=== PATIENT | female | born 1935 | race Caucasian/White ===

== ENCOUNTER → 2017-11-19 03:00 | Outpatient (CLI) | payer OTHER, SELFPAY ==
[2017-11-19 09:31] LABS: ALT 26 U/L (12-78); AST 21 U/L (15-37); Albumin 3.5 g/dL (3.4-5.0); Alkaline Phosphatase 84 U/L (46-116); Anion Gap 8.7 mmol/L (3-11); BUN 17 mg/dL (7-18); Bilirubin, Total 0.4 mg/dL (0.2-1.0); CO2 29.3 mmol/L (21.0-32.0); CREATININE 0.72 mg/dL (0.55-1.02); Calcium 9.1 mg/dL (8.5-10.1); Chloride 105 mmol/L (98-107); Glucose 93 mg/dL (70-100); Potassium 3.9 mmol/L (3.5-5.1); Sodium 143 mmol/L (136-145); Total Protein 6.9 g/dL (6.4-8.2)
== END ==
DX: I10 Essential (primary) hypertension (principal)
CPT/HCPCS: 36415; 80053

== ENCOUNTER → 2017-11-26 01:54 | Outpatient (CLI) | payer OTHER, SELFPAY ==
--- NOTE | 2017-11-26 15:53 | DI.REPORT_ITS ---
SYMPTOM/DIAGNOSIS: SCREENING, Z12.31 MAMMOGRAMS: Mammograms were interpreted according to the usual protocol including computer analysis with CAD system, tomosynthesis and C view imaging. Comparison is made with exams from [id number]. The breasts are composed of scattered fibroglandular densities, breast density, Category B. No suspicious masses or suspicious microcalcifications are seen. There has been no significant change. IMPRESSION: Category 1B, negative mammogram. Routine screening is recommended. [facility] ASSESSMENT OF FINDINGS: Negative. Category 1. Patient will receive a letter notifying them of these results. BI-RADS category B. There are scattered areas of fibroglandular density.
== END ==
DX: Z12.31 Encounter for screening mammogram for malignant neoplasm of breast (principal)
CPT/HCPCS: 77063; 77067

== ENCOUNTER 2018-09-17 01:44 | Outpatient (CLI) | payer OTHER, SELFPAY ==
[2018-09-17 08:48] LABS: ALT 30 U/L (12-78); AST 19 U/L (15-37); Albumin 3.6 g/dL (3.4-5.0); Alkaline Phosphatase 88 U/L (46-116); Anion Gap 8.1 mmol/L (3-11); BUN 22 mg/dL (7-18); Bilirubin, Total 0.3 mg/dL (0.2-1.0); CO2 28.9 mmol/L (21.0-32.0); CREATININE 0.69 mg/dL (0.55-1.02); Calcium 9.3 mg/dL (8.5-10.1); Chloride 104 mmol/L (98-107); Glucose 93 mg/dL (70-100); Potassium 4.1 mmol/L (3.5-5.1); Sodium 141 mmol/L (136-145); TSH (W/Ref FT4) 4.13 uIU/mL (0.358-3.74); Total Protein 7.1 g/dL (6.4-8.2)
[2018-09-17 09:05] LABS: FREE T4 0.99 ng/dL (0.76-1.46)
== END 2018-09-17 02:04 ==
DX: F32.9 Major depressive disorder, single episode, unspecified (principal); I10 Essential (primary) hypertension; J44.9 Chronic obstructive pulmonary disease, unspecified; G47.00 Insomnia, unspecified
CPT/HCPCS: 36415; 80053; 84439; 84443

== ENCOUNTER 2018-10-07 15:20 | Outpatient (CLI) | payer OTHER, SELFPAY | END 2018-10-07 15:40 | DX: Z82.0 Family history of epilepsy and other diseases of the nervous system (principal); F32.9 Major depressive disorder, single episode, unspecified; G47.00 Insomnia, unspecified | CPT/HCPCS: 36415; 83519 ==

== ENCOUNTER 2018-12-03 07:42 | Outpatient (CLI) | payer OTHER, SELFPAY ==
--- NOTE | 2018-12-03 11:11 | DI.MAMMO_ITS ---
SYMPTOM/DIAGNOSIS: SCREENING, Z12.39 MAMMOGRAMS: Mammograms were interpreted according to the usual protocol including computer analysis with CAD system, tomosynthesis and C view imaging. Comparison with prior examinations. Breast density B. No suspicious masses or microcalcifications are seen. There is no definite evidence of malignancy. IMPRESSION: Negative mammogram. Routine screening is recommended. Category I. [facility] ASSESSMENT OF FINDINGS: Negative. Category 1. Patient will receive a letter notifying them of these results. BI-RADS category B. There are scattered areas of fibroglandular density.
== END 2018-12-03 08:02 ==
DX: Z12.31 Encounter for screening mammogram for malignant neoplasm of breast (principal)
CPT/HCPCS: 77063; 77067

== ENCOUNTER 2019-01-05 11:53 | Outpatient (CLI) | payer OTHER, SELFPAY ==
[2019-01-05 13:31] LABS: Bilirubin Negative (Negative); Blood Large (Negative); Clarity Cloudy (Clear); Glucose Negative (Negative); Ketones Negative (Negative); Leukocyte Esterase Small (Negative); Nitrite Negative (Negative); Specific Gravity 1.015 (1.005-1.025); Urobilinogen 0.2 EU/dL (Up TO 0.2); pH 5.5 (5-8)
[2019-01-05 13:33] LABS: C & S Indicated? Yes; RBC >50 (0-2)
== END 2019-01-05 12:13 ==
DX: R30.0 Dysuria (principal)
CPT/HCPCS: 87077; 81003; 81015; 87086; 87186

== ENCOUNTER 2019-04-10 07:00 | Outpatient (CLI) | payer OTHER, SELFPAY ==
[2019-04-10 12:32] LABS: HCT 40.6 % (36.0-46.0); HGB 13.2 g/dL (12.0-15.5); Mean Corp. HGB Concentration 32.5 g/dL (32.0-36.0); Mean Corpuscular Hemoglobin 29.3 pg (27.0-33.0); Mean Corpuscular Volume 90.2 fL (80-95); Platelet Count 253 x1000/uL (130-400); RBC Distribution Width 14.6 % (11.7-14.6); White Blood Cell Count 9.26 k/cumm (4.4-10.8)
[2019-04-10 12:54] LABS: Uric Acid 3.9 mg/dL (2.6-6.0)
== END 2019-04-10 07:20 ==
PROVIDERS: Visit Provider Nurse Practitioner
DX: M25.532 Pain in left wrist (principal)
CPT/HCPCS: 36415; 85027; 84550

== ENCOUNTER 2019-12-22 03:16 | Outpatient (CLI) | payer OTHER, SELFPAY ==
[2019-12-22 09:00] LABS: ALT 25 U/L (14-59); AST 17 U/L (15-37); Albumin 3.4 g/dL (3.4-5.0); Alkaline Phosphatase 77 U/L (46-116); Anion Gap 7.6 mmol/L (3-11); BUN 17 mg/dL (7-18); Bilirubin, Total 0.3 mg/dL (0.2-1.0); CO2 29.4 mmol/L (21.0-32.0); Calcium 9.1 mg/dL (8.5-10.1); Chloride 105 mmol/L (98-107); Glucose 93 mg/dL (74-106); Potassium 3.9 mmol/L (3.5-5.1); Sodium 142 mmol/L (136-145); Total Protein 6.7 g/dL (6.4-8.2)
== END 2019-12-22 03:36 ==
DX: I10 Essential (primary) hypertension (principal); F32.9 Major depressive disorder, single episode, unspecified; G47.00 Insomnia, unspecified; J44.9 Chronic obstructive pulmonary disease, unspecified; R79.89 Other specified abnormal findings of blood chemistry; R49.9 Unspecified voice and resonance disorder; K21.9 Gastro-esophageal reflux disease without esophagitis; H91.90 Unspecified hearing loss, unspecified ear
CPT/HCPCS: 36415; 80053; 84443

== ENCOUNTER 2020-04-18 09:25 | Day surgery (SDC) | payer OTHER, SELFPAY ==
[2020-04-18 09:46] VITALS: BP 151/73; PULSE 62; RESP 18; TEMP 36.9; O2SAT 96
[2020-04-18] MEDS: Tropicam./Phenyleph. (1/2.5%) 5 ML BTL OS ×3 (09:57→10:12)
[2020-04-18] MEDS: Tetracaine 0.5% 4 ML BTL OS (10:38)
[2020-04-18] MEDS: Duovisc Viscoelastic System EACH 1 EACH (10:40)
[2020-04-18] MEDS: Balanced Salt Soln.-PLUS 500 ML BAG (10:40)
[2020-04-18] MEDS: Lidocaine 2% Jelly 6 ML SYR (10:41)
[2020-04-18] MEDS: Lidocaine 1% Pres-Free 5 ML VIAL (10:41)
[2020-04-18] MEDS: Povidone-Iodine Ophth 30 ML BTL (10:42)
--- NOTE | 2020-04-18 11:09 | W.PM.DSUDISC ---
Discharge Plan Disposition Patient Disposition: HOME Condition: Good Discharge Details Attending Provider: Joshua Santizo Primary Care Provider: Renee Iqbal Home Meds and New Rx's Prescriptions: No Action clobetasol [Temovate] 0.05 % ointment 1 applic Topical 3x/wk Qty: 60 RF: 4 ktpurcnw-dgezw-dhg 149-hyal ac 750 mg-100 mg- 125 mg-1.65 mg tablet 1 tab PO .tab RF: 0 Xdnj-Ajmd-Ekshx (ci-NI-lpglrz) 400-2,000 mcg tablet 1 tab PO DAILY RF: 0 cholecalciferol (vitamin D3) 125 mcg (5,000 unit) capsule 125 mcg PO .COMPLEX RF: 0 budesonide-formoterol [Symbicort] 80-4.5 mcg/actuation HFA aerosol inhaler 2 puff Inhalation BID Qty: 3 RF: 4 lisinopril 2.5 mg tablet 2.5 mg PO DAILY Qty: 30 RF: 1 multivitamin 1 EACH tablet 1 tab PO DAILY RF: 0 cetirizine [Zyrtec] 10 MG tablet 1 tab PO DAILY PRNRF: 0 ibuprofen 200 MG tablet 1 tab PO PRN RF: 0 aspirin [Aspirin Low-Strength] 81 MG tablet,chewable 1 tab PO DAILY RF: 0 Tumeric 1 cap PO DAILY RF: 0 hydrochlorothiazide 12.5 mg tablet 12.5 mg PO DAILY Qty: 90 RF: 4 sertraline [Zoloft] 50 mg tablet 50 mg PO DAILY Qty: 90 RF: 4 famotidine 20 mg tablet 20 mg PO BID Qty: 60 RF: 6 Discharge Instructions Stand Alone Forms: Post-op Topical Cataract, Gloria Ganey (DSU) Discharge Orders Discharge Orders: Discharge Order (Routine); Ordered 04/18/20 Ordered By: Jsohua Santizo DS: Diagnosis Discharge Diagnosis (1) Nuclear sclerotic cataract of left eye: Status: Resolved (2) Cortical cataract of left eye: Status: Resolved
--- NOTE | 2020-04-18 11:10 | W.PM.OP ---
Date of service: 04/18/20 Time of Service: 11:10 Operative Note Operative Note DATE OF PROCEDURE: 04/18/20 PRE-OP DIAGNOSIS: Nuclear/cortical cataract, left eye POST-OP DIAGNOSIS: same PROCEDURE: Cataract extraction using phacoemulsification with intraocular lens implant, left eye SURGEON: Joshua Santizo ANESTHESIA: MAC and local (sub-tenon's anesthetic infiltration) PATHOLOGY: none sent COMPLICATIONS: None Patient was transported to: same day Patient's condition: stable Implants: Stefano and Stefano Vision / [employer] Tecnis ZCB00 Indications: Progressive decreased vision due to cataract, left eye Procedure Description: CATARACT SURGERY OPERATIVE REPORT PREOPERATIVE DIAGNOSIS: Nuclear/cortical cataract, left eye POSTOPERATIVE DIAGNOSIS: Same OPERATION: Cataract extraction using phacoemulsification with posterior chamber intraocular lens implant, left eye. IOL: IOL Security Systems Engineer/Model: [employer] Vision / PAT Tecnis ZCB00 IOL Power: + 25.0 diopters IOL Serial Number: [id number] Optic Diameter: 6.0mm Haptic/Overall Diameter: 13.0mm PHACO INFO: Jaime femeninasurion Vision System with OZil and Active Fluidics Cumulative Dispersed Energy (CDE): 9.21 seconds SURGEON: Joshua Santizo MD, JENN ANESTHESIA: Monitored Anesthesia Care (MAC), with local sub-tenon's anesthetic infiltration COMPLICATIONS: None SPECIMENS: None INDICATIONS FOR PROCEDURE: The patient is an 84-year-old lady with history of diminished visual acuity in her left eye secondary to the development of significant nuclear cataract. The option of cataract surgery was offered to the patient and she wished to proceed. PROCEDURE: The correct surgical eye was identified and marked as the left eye and the pupil was dilated in the preoperative area using mydriatics and cycloplegics. The dilated pupil size was 6.0 mm. The patient elected to proceed without oral sedation the patient was brought to the operating room where cardiopulmonary monitoring was instituted and surgical time-out was performed, confirming the correct operative eye and IOL power. Topical anesthesia was administered and ophthalmic povidone-iodine 5% was instilled into the conjunctival fornices. Lidocaine gel was applied to the cornea and the gabriella-ocular area was prepped with Betadine 10% solution and draped in the usual sterile fashion for intraocular surgery, including an aperture drape. A Tegaderm transparent film dressing was cut in half and used to cover the lashes and lid margins. Care was taken to sequester the lashes and lid margins under the Tegaderm dressing. A lid speculum was placed between the lids of the operative eye and the Chikis-Jamaal operating microscope was maneuvered into position. Jasbir scissors were then used to make a conjunctival buttonhole approximately 6mm posterior to the limbus in the inferonasal quadrant. Blunt dissection was carried out to expose bare sclera, and a blunt-tipped sub-tenon?s anesthesia cannula was introduced and passed posteriorly along the globe where non-preserved plain lidocaine was injected into posterior sub-Tenon?s space. A sideport knife was used to make a paracentesis port superior/superiortemporally. Intraocular phenylephrine/lidocaine was injected into the anterior chamber. The anterior chamber was then filled with viscoelastic. A 2.4mm keratome knife was used to create a half-thickness groove at the limbus and then to construct a three-plane near-clear corneal tunnel extending 2.0mm into clear cornea in the temporal position. . A flap was raised on the anterior capsule and capsulorhexis forceps were used to complete a continuous curvilinear capsulorhexis of 5.5 mm. Balanced salt solution was then used to perform cortical cleaving hydrodissection and nuclear hydrodelineation until the lens could be freely rotated within the capsular bag. The lens nucleus was then disassembled and removed within the capsular bag and iris plane using phacoemulsification. Residual cortical material was removed using the 45-degree angled silicone I/A tip with 0.3mm port. The posterior capsule was carefully polished to remove as much residual lens epithelial cells as safely possible. The capsular bag was then inflated and the anterior chamber deepened with viscoelastic. The lens implant described above was inserted into the capsular bag using the PAT [place] Injector. A Kuglen hook was used to dial the IOL into position. Residual viscoelastic was then removed first from posterior to the IOL, then from the anterior chamber using the I/A handpiece. The lens implant was noted to center nicely within the capsular bag. The incisions were stromally hydrated, and the anterior chamber was reformed using BSS. Then 0.5cc of moxifloxacin 1.0mg/ml were injected into the capsular bag and anterior chamber. The incisions were checked with a Weck spear and found to be secure. Several drops of ophthalmic povidone-iodine 5% were then applied to the eye followed by two drops of Imprimis combination prednisolone/moxifloxacin/nepafenac solution. The drapes were removed and a clear plastic protective eye shield was placed over the eye. The patient was then returned to [facility] in stable condition.
== END 2020-04-18 11:37 | disposition home or self-care (01) ==
PROVIDERS: Visit Provider Ophthalmology
PROC: (CPT 66984; principal; 2020-04-18 11:30)
DX: H25.12 Age-related nuclear cataract, left eye (principal); H25.012 Cortical age-related cataract, left eye; I10 Essential (primary) hypertension; J44.9 Chronic obstructive pulmonary disease, unspecified; K21.9 Gastro-esophageal reflux disease without esophagitis
CPT/HCPCS: 66984; V2632

== ENCOUNTER 2020-05-02 07:28 | Day surgery (SDC) | payer OTHER, SELFPAY ==
[2020-05-02 07:30] VITALS: BP 128/72; PULSE 68; RESP 18; TEMP 36.1; O2SAT 98
[2020-05-02] MEDS: Tropicam./Phenyleph. (1/2.5%) 5 ML BTL OD ×3 (07:48→07:56)
[2020-05-02] MEDS: Tetracaine 0.5% 4 ML BTL OD (09:13)
[2020-05-02] MEDS: Lidocaine 1% Pres-Free 5 ML VIAL (09:20)
[2020-05-02] MEDS: Balanced Salt Soln.-PLUS 500 ML BAG (09:33)
[2020-05-02] MEDS: Duovisc Viscoelastic System EACH 1 EACH (09:33)
[2020-05-02] MEDS: Lidocaine 2% Jelly 6 ML SYR (09:34)
[2020-05-02] MEDS: Povidone-Iodine Ophth 30 ML BTL (09:35)
--- NOTE | 2020-05-02 09:39 | W.PM.DSUDISC ---
Discharge Plan Disposition Patient Disposition: HOME Condition: Good Discharge Details Attending Provider: Joshua Santizo Primary Care Provider: Renee Iqbal Home Meds and New Rx's Prescriptions: No Action clobetasol [Temovate] 0.05 % ointment 1 applic Topical 3x/wk Qty: 60 RF: 4 joziviqs-flkww-akj 149-hyal ac 750 mg-100 mg- 125 mg-1.65 mg tablet 1 tab PO .tab RF: 0 Jdad-Mubi-Iqeel (zp-AL-qdspcr) 400-2,000 mcg tablet 1 tab PO DAILY RF: 0 cholecalciferol (vitamin D3) 125 mcg (5,000 unit) capsule 125 mcg PO .COMPLEX RF: 0 budesonide-formoterol [Symbicort] 80-4.5 mcg/actuation HFA aerosol inhaler 2 puff Inhalation BID Qty: 3 RF: 4 lisinopril 2.5 mg tablet 2.5 mg PO DAILY Qty: 90 RF: 3 cetirizine [Zyrtec] 10 MG tablet 1 tab PO DAILY PRNRF: 0 ibuprofen 200 MG tablet 1 tab PO PRN RF: 0 aspirin [Aspirin Low-Strength] 81 MG tablet,chewable 1 tab PO DAILY RF: 0 Tumeric 1 cap PO DAILY RF: 0 hydrochlorothiazide 12.5 mg tablet 12.5 mg PO DAILY Qty: 90 RF: 4 sertraline [Zoloft] 50 mg tablet 50 mg PO DAILY Qty: 90 RF: 4 famotidine 20 mg tablet 20 mg PO BID Qty: 60 RF: 6 ascorbic acid (vitamin C) [Vitamin C] 500 mg Tablet 500 mg PO DAILY RF: 0 Discharge Instructions Stand Alone Forms: Post-op Topical Cataract, Gloria Yanes ([facility]U) Discharge Orders Discharge Orders: Discharge Order (Routine); Ordered 05/02/20 Ordered By: Joshua Santizo DS: Diagnosis Discharge Diagnosis (1) Nuclear sclerotic cataract of right eye: Status: Resolved (2) Cortical cataract of right eye: Status: Resolved
--- NOTE | 2020-05-02 09:42 | ROE_ITS ---
Date of service: 05/02/20 Time of Service: 09:42 Operative Note Operative Note DATE OF PROCEDURE: 05/02/20 PRE-OP DIAGNOSIS: Nuclear/cortical cataract, right eye POST-OP DIAGNOSIS: same PROCEDURE: Cataract extraction using phacoemulsification with intraocular lens implant, right eye SURGEON: Joshua Santizo ANESTHESIA: MAC and local (sub-tenon's anesthetic infiltration) ESTIMATED BLOOD LOSS: 0 PATHOLOGY: none sent COMPLICATIONS: None Patient was transported to: same day Patient's condition: stable Implants: Stefano and Stefano Vision / [employer] Tecnis ZCB00 intraocular lens Indications: Progressive decreased vision due to cataract, right eye Procedure Description: CATARACT SURGERY OPERATIVE REPORT PREOPERATIVE DIAGNOSIS: Nuclear/cortical cataract, right eye POSTOPERATIVE DIAGNOSIS: Same OPERATION: Cataract extraction using phacoemulsification with posterior chamber intraocular lens implant, right eye. IOL: IOL Dietitian Research/Model: J&J Vision / PAT Tecnis ZCB00 IOL Power: + +25.0 diopters IOL Serial Number: [id number] Optic Diameter: 6.0mm Haptic/Overall Diameter: 13.0mm PHACO INFO: Jaime [employer] Vision System with OZil and Active Fluidics Cumulative Dispersed Energy (CDE): 2.25 seconds SURGEON: Joshua Santizo MD, JENN ANESTHESIA: Monitored Anesthesia Care (MAC), with local sub-tenon's anesthetic infiltration COMPLICATIONS: None SPECIMENS: None INDICATIONS FOR PROCEDURE: The patient is an 84-year-old lady with history of diminished visual acuity in both eyes secondary to the development of bilateral nuclear cataract. She is significantly symptomatic that she desires cataract surgery and attempt to im prove and maximize her vision. She has already undergone cataract surgery in the left eye and is doing well postoperatively. She now presents for cataract surgery in the right eye. PROCEDURE: The correct surgical eye was identified and marked as the right eye and the pupil was dilated in the preoperative area using mydriatics and cycloplegics. The dilated pupil size was 6.5 mm. No oral sedation was given at patient's request. The patient was brought to the operating room where cardiopulmonary monitoring was instituted and surgical time-out was performed, confirming the correct operative eye and IOL power. Topical anesthesia was administered and ophthalmic povidone-iodine 5% was instilled into the conjunctival fornices. Lidocaine gel was applied to the cornea and the gabriella-ocular area was prepped with Betadine 10% solution and draped in the usual sterile fashion for intraocular surgery, including an aperture drape. A Tegaderm transparent film dressing was cut in half and used to cover the lashes and lid margins. Care was taken to sequester the lashes and lid margins under the Tegaderm dressing. A lid speculum was placed between the lids of the operative eye and the Chikis-Jamaal operating microscope was maneuvered into position. Jasbir scissors were then used to make a conjunctival buttonhole approximately 6mm posterior to the limbus in the inferonasal quadrant. Blunt dissection was carried out to expose bare sclera, and a blunt-tipped sub-tenon?s anesthesia cannula was introduced and passed posteriorly along the globe where non- preserved plain lidocaine was injected into posterior sub-Tenon?s space. A sideport knife was used to make a paracentesis port inferiortemporally. Intraocular phenylephrine/lidocaine was injected into the anterior chamber. The anterior chamber was then filled with viscoelastic. A 2.4mm keratome knife was used to create a half-thickness groove at the limbus and then to construct a three-plane near-clear corneal tunnel extending 2.0mm into clear cornea in the superiortemporal position. . A flap was raised on the anterior capsule and capsulorhexis forceps were used to complete a continuous curvilinear ca psulorhexis of 5.0 mm. Balanced salt solution was then used to perform cortical cleaving hydrodissection and nuclear hydrodelineation until the lens could be freely rotated within the capsular bag. The lens nucleus was then disassembled and removed within the capsular bag and iris plane using phacoemulsification. Residual cortical material was removed using the I/A handpiece. The posterior capsule was carefully polished to remove as much residual lens epithelial cells as safely possible. The capsular bag was then inflated and the anterior chamber deepened with viscoelastic. The lens implant described above was inserted into the capsular bag using the PAT [place] Injector. A Kuglen hook was used to dial the IOL into position. Residual viscoelastic was then removed first from posterior to the IOL, then from the anterior chamber using the I/A handpiece. The lens implant was noted to center nicely within the capsular bag. The incisions were stromally hydrated, and the anterior chamber was reformed using BSS. Then 0.5cc of moxifloxacin 1.0mg/ml were injected into the capsular bag and anterior chamber. The incisions were checked with a Weck spear and found to be secure. Several drops of ophthalmic povidone-iodine 5% were then applied to the eye followed by two drops of Imprimis combination prednisolone/moxifloxacin/nepafenac solution. The drapes were removed and a clear plastic protective eye shield was placed over the eye. The patient was then returned to Same Day Surgery in stable condition.
== END 2020-05-02 10:07 | disposition home or self-care (01) ==
PROVIDERS: Visit Provider Ophthalmology
PROC: (CPT 66984; principal; 2020-05-02 09:30)
DX: H25.11 Age-related nuclear cataract, right eye (principal); H25.011 Cortical age-related cataract, right eye; Z98.42 Cataract extraction status, left eye; Z96.1 Presence of intraocular lens; J44.9 Chronic obstructive pulmonary disease, unspecified; K21.9 Gastro-esophageal reflux disease without esophagitis
CPT/HCPCS: 66984; V2632

== ENCOUNTER 2020-12-23 01:54 | Outpatient (CLI) | payer OTHER, SELFPAY ==
[2020-12-23 14:51] LABS: ALT 29 U/L (14-59); AST 21 U/L (15-37); Albumin 3.6 g/dL (3.4-5.0); Alkaline Phosphatase 68 U/L (46-116); BUN 16 mg/dL (7-18); Bilirubin, Total 0.4 mg/dL (0.2-1.0); CREATININE 0.8 mg/dL (0.55-1.02); Calcium 8.8 mg/dL (8.5-10.1); Chloride 108 mmol/L (98-107); Glucose 91 mg/dL (74-106); Sodium 142 mmol/L (136-145); TSH (W/Ref FT4) 1.34 uIU/mL (0.36-3.74); Total Protein 6.8 g/dL (6.4-8.2)
== END 2020-12-23 01:55 | disposition home or self-care (01) ==
LOC: LBO 01:54
DX: R79.89 Other specified abnormal findings of blood chemistry (principal); Z00.00 Encounter for general adult medical examination without abnormal findings; I10 Essential (primary) hypertension
CPT/HCPCS: 36415; 80053; 84443

== ENCOUNTER 2022-02-13 21:32 | Emergency (ER) | payer MEDICARE, SELFPAY ==
[2022-02-13 20:44] VITALS: BP 140/100; PULSE 79; RESP 23; TEMP 39.2; O2SAT 93
--- NOTE | 2022-02-13 20:45 | RT.EKG_ITS ---
APPROVED REPORT Exam: Resting ECG Reason for Exam: sob Patient Location: E HR:74 bpm ECG Measurements Heart Rate 74 AXIS KS 145 P 56 QRSd 113 QRS -21 QT 381 T 84 QTc 422 Conclusion Sinus rhythm...normal P axis, V-rate 60- 99 Atrial premature complex...SV complex w/ short R-R interval Probable left ventricular hypertrophy...(RaVL+SV3)xQRSd >300
[2022-02-13] MEDS: Ondansetron 4 MG/2 ML VIAL IVP (21:00)
[2022-02-13] MEDS: Normal Saline 1,000 ML 1000 ML IV (21:00)
[2022-02-13 21:14] LABS: Abs Immature Grans 0.04 10^3/uL (0.0-0.06); Absolute Basophil Count 0.04 10^3/uL (0.0-0.2); Absolute Lymphocyte Count 0.72 10^3/uL (1.2-3.4); Absolute Monocyte Count 1.33 10^3/uL (0.1-0.8); Basophils % 0.3; Eosinophils % 0.2; HCT 34.1 % (36.0-46.0); HGB 11.4 g/dL (11.2-15.7); Immature Grans % 0.3; Lymphocytes % 5.9; MCH 29.7 pg (27.0-33.0); MCHC 33.4 % (32.0-36.0); MCV 89 fL (80-95); MPV 11.4 fL (8.0-11.0); Monocytes % 10.9; Neutrophils % 82.4; Platelet Count 216 10^3/uL (130-400); RBC 3.84 10^6/uL (3.93-5.22); RDW 13.7 % (11.7-14.6); RDW-SD 44.5 fL; WBC 12.19 10^3/uL (4.4-10.8)
[2022-02-13 21:15] LABS: Absolute Eosinophil Count 0.02 10^3/uL (0.0-0.7); Absolute Neutrophil Count 10.04 10^3/uL (1.2-6.7)
--- NOTE | 2022-02-13 21:15 | DI.RAD_ITS ---
Exam(s) XR PORTABLE CHEST AP EXAM: XR PORTABLE CHEST AP CLINICAL HISTORY: cough TECHNIQUE: 2D digital imaging was performed of the chest. Images were obtained. PA and lateral v iews were obtained. COMPARISON: No exams were available for comparison FINDINGS: MEDIASTINUM: Normal. HEART: Normal. PULMONARY VASCULATURE: Normal. LUNGS: There are bilateral interstitial infiltrates present, right greater than left. No focal conso lidation is seen. PLEURAL SPACE: No pleural effusion or pneumothorax. BONE:Within normal limits for the patient's age. There is a left convex curvature of the lumbar spin e. OTHER FINDINGS:Normal. IMPRESSION: Bilateral pulmonary infiltrates. Pneumonia is suspected. Please correlate clinically. The possibil ity of chronic fibrotic changes cannot be entirely excluded. DATA REPOSITORY: RADIATION DOSE DELIVERED:
--- NOTE | 2022-02-13 21:18 | ED.GENADUL_ITS ---
Discharge Plan Disposition Patient Disposition: HOME Condition: Stable Discharge Details Clinical Impression: Fever, Cough Primary Care Provider: Renee Iqbal ED Provider: Gorge Marquez Home Meds and New Rx's Prescriptions: New levofloxacin 750 mg tablet 750 mg PO DAILY Qty: 6 0RF Continued clobetasol [Temovate] 0.05 % ointment 1 applic Topical 3x/wk Qty: 60 Label Comments: 12/08/2019 uses 2X/Week. managed by [facility] Rx Instructions: 60 GM peydhukl-zbqix-qfj 149-hyal ac 750 mg-100 mg- 125 mg-1.65 mg tablet 1 tab PO .tab Ipkt-Agll-Bvevy (nt-PQ-nznwvq) 400-2,000 mcg tablet 1 tab PO DAILY cholecalciferol (vitamin D3) 125 mcg (5,000 unit) capsule 125 mcg PO .COMPLEX Rx Instructions: 125 mcg PO 3 x WEEK; famotidine 20 mg tablet 20 mg PO BID Qty: 60 12RF hydrochlorothiazide 12.5 mg tablet 12.5 mg PO DAILY Qty: 90 4RF lisinopril 5 mg tablet 5 mg PO DAILY Qty: 90 3RF sertraline [Zoloft] 50 mg tablet 50 mg PO DAILY Qty: 90 4RF azelastine 137 mcg (0.1 %) aerosol,spray 137 mcg intranasal ONCE Qty: 30 0RF Rx Instructions: administer into each nostril magnesium oxide 500 mg capsule 500 mg PO DAILY cetirizine [Zyrtec] 10 MG tablet 1 tab PO DAILY PRN ibuprofen 200 MG tablet 1 tab PO PRN aspirin [Aspirin Low-Strength] 81 MG tablet,chewable 1 tab PO DAILY Tumeric 1 cap PO DAILY budesonide-formoterol [Symbicort] 80-4.5 mcg/actuation HFA aerosol inhaler 2 puff Inhalation BID Qty: 3 4RF ascorbic acid (vitamin C) [Vitamin C] 500 mg Tablet 500 mg PO DAILY Discharge Instructions Instructions: Fever in Adults (ED) Additional Instructions: take the levofloxacin once daily try to drink fluids to stay hydrated follow up with your primary care provider within 1 week if you feel more ill, have worsening trouble breathing or severe pain return to the emergency department Medical Decision Making 86 yo female who states she is fully vaccinated with 2 boosters for covid, history of copd, not on oxygen, htn, who comes in with ems for 6 days with cough, n/v and states I have covid. She states she started to have a cough 6 days ago and tested positive for covid at home. She has continued to have a cough, and then developed n/v today and so called ems. She has also noted general weakness. She any to me any chest pain or dyspnea. She has had a fever. She denies headaches, neck stiffness. She arrives stable, not requiring oxygen speaking in full sentences without evidence of respiratory distress. She is caox4. She has no wheezing though is diminished at the bases bilaterally. She has no abdominal tenderness, no meningismus. Suspect this is due to covid, will obtain cbc, cmp, and portable chest xray along with fluvid and reassess after iv fluids, zofran and tylenol. pt stable, feels significantly better after fluids and zofran. Tolerating po. She continues to have stable vitals 95% on room air. She surprisingly is negative for covid on testing here. Xray negative. Discussed with pt and given her age and mild leukocytosis to 12 recommended admission for observation and antibiotics. She states she feels better and has no desire to be hospitalized at this time and has capacity to make her own decisions and understands risks of worsening infection including and disability and is willing to accept these risks. She is able to take po so will cover for CAP given her cough with levofloxacin. She understands to f/u with her pcp brendon and return precautions given Differential Diagnosis Differential Diagnosis: covid, pneumonia, flu Medical Records Medical records reviewed: Yes I reviewed the patient's medical records. Imaging Data Radiologic Study: Attestation: I personally reviewed and interpreted this imaging study as follows: Imaging: X-Ray Radiologist's impression: no acute findings Lab Data Lab results reviewed: Yes I reviewed the patient's lab results. ECG Data Attestation: I personally reviewed and interpreted this ECG (s) as follows: Prior ECG tracings: not available for review Interpretation: sinus rhythm, rate of 74, no acute st t wave ischemic findings HPI General Mode of arrival: EMS . Date/Time Provider Initiated Documentation: 02/13/22 22:14 . Limitations to Documentation: no limitations . Information obtained by: patient . History of Present Illness 86 year old F presents to the emergency department with the chief complaint of I have covid, described as moderate, Patient started experiencing this day(s) (6) and it has been constant. No relieving factors improve symptom(s), No exacerbating factors reported . Patient notes cough and nausea/vomiting. Patient did receive the following treatments prior to arrival, none Related Data Home Medications Medication Instructions Recorded Confirmed aspirin 81 mg chewable tablet 1 tab PO DAILY 07/22/12 12/19/21 (Aspirin Low-Strength) cetirizine 10 mg tablet (Zyrtec) 1 tab PO DAILY PRN 07/22/12 12/19/21 ibuprofen 200 mg tablet 1 tab PO PRN 07/22/12 12/19/21 Tumeric 1 cap PO DAILY 11/12/17 12/19/21 cholecalciferol (vitamin D3) 125 125 mcg PO .COMPLEX 12/08/19 12/19/21 mcg (5,000 unit) capsule clobetasol 0.05 % topical ointment 1 applic topical 3x/wk #60 grams 12/08/19 12/19/21 (Temovate) dmrxbcytktc-zokglqlfx-[id number]-hyal 1 tab PO .tab 12/08/19 12/19/21 750 mg-100 mg-125 mg-1.65 mg tablet multivitamin-folic acid 400 1 tab PO DAILY 12/08/19 12/19/21 mcg-biotin 2,000 mcg tablet (Dalj-Gbuj-Lsihu (seioferm-reull-hznqxq)) ascorbic acid (vitamin C) 500 mg 500 mg PO DAILY 05/02/20 12/19/21 tablet (Vitamin C) azelastine 137 mcg (0.1 %) nasal 137 mcg (0.137 mL) intranasal ONCE 12/19/21 12/19/21 spray aerosol #30 mL famotidine 20 mg tablet 20 mg PO BID #60 tabs 12/19/21 12/19/21 hydrochlorothiazide 12.5 mg tablet 12.5 mg PO DAILY #90 tabs 12/19/21 12/19/21 lisinopril 5 mg tablet 5 mg PO DAILY #90 tabs 12/19/21 12/19/21 sertraline 50 mg tablet (Zoloft) 50 mg PO DAILY #90 tabs 12/19/21 12/19/21 magnesium oxide 500 mg capsule 500 mg PO DAILY 01/02/22 budesonide-formoterol HFA 80 2 puff inhalation BID ##3 01/04/22 mcg-4.5 mcg/actuation aerosol inhaler (Symbicort) levofloxacin 750 mg tablet 750 mg PO DAILY #6 tabs 02/13/22 Previous Rx's Medication Instructions Recorded azelastine 137 mcg (0.1 %) nasal 137 mcg (0.137 mL) intranasal ONCE 12/19/21 spray aerosol #30 mL famotidine 20 mg tablet 20 mg PO BID #60 tabs 12/19/21 hydrochlorothiazide 12.5 mg tablet 12.5 mg PO DAILY #90 tabs 12/19/21 lisinopril 5 mg tablet 5 mg PO DAILY #90 tabs 12/19/21 sertraline 50 mg tablet (Zoloft) 50 mg PO DAILY #90 tabs 12/19/21 budesonide-formoterol HFA 80 2 puff inhalation BID ##3 01/04/22 mcg-4.5 mcg/actuation aerosol inhaler (Symbicort) levofloxacin 750 mg tablet 750 mg PO DAILY #6 tabs 02/13/22 Allergies Allergy/AdvReac Type Severity Reaction Status Date / Time erythromycin base Allergy Pt states Verified 01/02/22 14:32 when she was a kid Macrolide Antibiotics Allergy unknown Verified 01/02/22 14:32 General Stated Complaint: Fever BHAVANI: 3 Review of Systems All systems reviewed & are unremarkable except as noted in HPI and below Eyes Eyes: Denies loss of vision ENT Ears, Nose, Mouth, and Throat: Denies change in voice Cardiovascular Cardiovascular: Denies chest pain Gastrointestinal Gastrointestinal: Denies abdominal pain Genitourinary Genitourinary: Denies dysuria Musculoskeletal Musculoskeletal: Denies joint swelling Neurologic Neurologic: Denies loss of vision PFSH All Active Problems (Updated 02/13/22 @ 22:59 by Gorge Marquez MD) Fever (Acute) Cough (Acute) Pain, foot (Acute) Corns and callosities (Acute) Vulvar irritation (Acute) LICHEN SCLEROSIS OF [place] PER [facility] 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 Marcia Baumann (Acute 03/22/16) Low back pain (Chronic) chronic LBP and stiffness Increased frequency of urination (Chronic) Gastroesophageal reflux disease (Chronic) Essential hypertension (Chronic 01/01/13) Dermatitis (Acute 12/31/13) Depressive disorder (Chronic) COPD (chronic obstructive pulmonary disease) (Acute) quit smoking 2002 Atrophic vaginitis (Acute 05/13/15) Allergic rhinitis (Chronic) Actinic keratosis (Chronic) nose; Dr. Wolfe Elevated TSH (Acute) Migraine aura without headache (Acute) Medical History (Updated 02/13/22 @ 22:59 by Gorge Marquez MD) COPD (chronic obstructive pulmonary disease) Ganglion cyst GERD (gastroesophageal reflux disease) Hearing loss Dr. Kennedy Impacted cerumen, right ear (03/22/16) Ingrowing eyelash of lower lid (R) Mass of joint of right wrist Surgical History Cholecystectomy (~2011) Colonoscopy - MAC (03/27/16) Open Carpal Tunnel release (~2007) X 2 Family History Son Acromegaly Depression Bowel cancer Daughter Depression Skin cancer Social History (Updated 12/20/21 @ 15:25 by Miriam Lynch) Smoking/Tobacco Use Status: Former Tobacco Use Quit Date: 04/08/89 Tobacco: How many years used: 48 Second Hand Exposure: No Smoking risk assessment performed?: Yes Alcohol Intake: current Alcohol Intake frequency: holidays/special occasions only Alcohol type: wine Drug use: Rarely Substance use type: does not use Counseling given: No Counseling provided: none Adopted: Yes Caregiver/Support person: Yes Household members: spouse Housing: apartment Communication Needs: Hard of Hearing and Corrective Lenses Do you need help understanding health information?: Never Pets and animals: No Sexually active: No Do you think of yourself as: straight/heterosexual Current gender identity: female What is your relationship status?: How often do you talk on the phone with friends or family?: three or more times per week How often do you get together with friends or relatives?: once per week How often do you attend christian or mandaeism services?: 4 or more times per year Do you belong to any clubs or organized social groups?: yes Panel score (0-1 are the most socially isolated patients): 4 What type of physical activity do you participate in: walking and other Details: Excercise class Duration: 15-30 minutes/day Frequency: 1-2 times per week Michaela/Mandaen: Religion Special michaela needs: No Seatbelt use: always Helmet use: No 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 Do you feel safe at home: Yes Do you feel safe in your relationship?: Yes Exam Const General: no acute distress Orientation: alert HENMT Head: normal to inspection Ears: external ears normal General nose exam: external nose normal Mouth: moist mucous membranes Eyes General: appearance normal, both eyes and all related structures Neck Neck: normal visual inspection Resp Effort & Inspection: normal respiratory effort and able to speak in complete sentences Cardio Rate: regular rate GI Palpation: soft and nontender Skin General skin exam: no rashes or lesions noted Neuro General: patient alert and patient oriented x3 Extrem General: normal to inspection Psych Mental Status: mental status grossly normal Course Vital Signs Vital signs: Vital Signs Temperature 39.2 C H 02/13/22 20:44 Pulse 79 02/13/22 20:44 Respiratory Rate 23 02/13/22 20:44 Blood Pressure 140/100 H 02/13/22 20:44 Pulse Oximetry 93 02/13/22 20:44 Temperature 39.2 C H 02/13/22 20:44 Temperature Source Oral 02/13/22 20:44 Pulse 79 02/13/22 20:44 Respiratory Rate 23 02/13/22 20:44 Respiratory Effort 02/13/22 20:52 Blood Pressure 140/100 H 02/13/22 20:44 Blood Pressure Position Supine 02/13/22 20:44 Pulse Oximetry 93 02/13/22 20:44 Oxygen Delivery Method Room Air 02/13/22 20:44 Oxygen Flow Rate 0 02/13/22 20:44 Pain Level 4 02/13/22 20:44 Lab/Test Results Lab/Test Results: Laboratory Tests Range/Units 02/13/22 21:00 WBC (4.4-10.8) 10^3/uL 12.19 H RBC (3.93-5.22) 10^6/uL 3.84 L Hgb (11.2-15.7) g/dL 11.4 Hct (36.0-46.0) % 34.1 L MCV (80-95) fL 89 MCH (27.0-33.0) pg 29.7 MCHC (32.0-36.0) % 33.4 RDW (11.7-14.6) % 13.7 Plt Count (130-400) 10^3/uL 216 MPV (8.0-11.0) fL 11.4 H Immature Gran % 0.3 Neutrophils % 82.4 Lymphocytes % 5.9 Monocytes % 10.9 Eosinophils % 0.2 Basophils % 0.3 Nucleated RBC % (0.0-0.3) % 0.0 Absolute Neutrophils (1.2-6.7) 10^3/uL 10.04 H Absolute Lymphocytes (1.2-3.4) 10^3/uL 0.72 L Absolute Monocytes (0.1-0.8) 10^3/uL 1.33 H Absolute Eosinophils (0.0-0.7) 10^3/uL 0.02 Absolute Basophils (0.0-0.2) 10^3/uL 0.04
[2022-02-13] MEDS: Acetaminophen 500 MG TAB 1000 MG PO (21:23)
[2022-02-13 21:31] LABS: ALT 34 U/L (14-59); AST 33 U/L (15-37); Albumin 3.1 g/dL (3.4-5.0); Alkaline Phosphatase 78 U/L (46-116); Anion Gap 9.5 mmol/L (3-11); BUN 20 mg/dL (7-18); Bilirubin, Total 0.7 mg/dL (0.2-1.0); CO2 28.5 mmol/L (21.0-32.0); Calcium 9.1 mg/dL (8.5-10.1); Chloride 98 mmol/L (98-107); Estimated GFR 55.55 (mL/min/1.73m2); Glucose 146 mg/dL (74-106); Magnesium 1.9 mg/dL (1.8-2.4); Potassium 3.2 mmol/L (3.5-5.1); Sodium 136 mmol/L (136-145); Total Protein 7.5 g/dL (6.4-8.2)
[2022-02-13 21:48] LABS: COVID-19 PCR Negative (Negative); Influenza A PCR Negative (Negative); Influenza B PCR Negative (Negative); RSV PCR Negative (Negative)
[2022-02-13 21:52] LABS: Source Nasopharynx
--- NOTE | 2022-02-13 22:09 | DI.VRAD_ITS ---
PROCEDURE INFORMATION: Exam: XR Chest Exam date and time: 02/13/2022 9:30 PM Age: 86 years old Clinical indication: Cough TECHNIQUE: Imaging protocol: Radiologic exam of the chest. Views: 1 view. COMPARISON: No relevant prior studies available. FINDINGS: Lungs: Unremarkable. No consolidation. Pleural spaces: Unremarkable. No pleural effusion. No pneumothorax. Heart/Mediastinum: Unremarkable. No cardiomegaly. Bones/joints: Degenerative and scoliotic change of the spine. IMPRESSION: No acute findings. Dictated and Authenticated by: Gorge Muro MD. Ordering:KRYSTIAN Pennington MD
[2022-02-13] MEDS: levoFLOXacin 500 MG, levoFLOXacin 250 MG 750 MG PO (22:59)
[2022-02-13] MEDS: Dexamethasone 10 MG/ML VIAL IVP (22:59)
[2022-02-13 23:47] LABS: Bilirubin Negative (Negative); Blood Trace-intact (Negative); Clarity Clear (Clear); Glucose Negative (Negative); Ketones Negative (Negative); Leukocyte Esterase Small (Negative); Nitrite Positive (Negative); Specific Gravity 1.025 (1.005-1.025); Urobilinogen 0.2 EU/dL (Up TO 0.2)
[2022-02-13 23:54] LABS: Bacteria Moderate HPF (Negative); C & S Indicated? Yes; Crystals Few Amorphous HPF (Negative); Epithelial Cells Few HPF (Negative); Mucus Negative (Negative); RBC 0-2 HPF (0-2)
[2022-02-13 23:56] VITALS: BP 137/68; PULSE 78; RESP 16; TEMP 36.8; O2SAT 98
[2022-02-15 09:34] LABS: Lyme Ab w Rflx to Lyme Confirm Negative (Negative)
[2022-02-17 18:08] LABS: Anaplasma phagocytophilum Negative (Negative); B. miyamotoi PCR Negative (Negative); Babesia divergens/MO-1 Negative (Negative); Babesia duncani Negative (Negative); Babesia microti Negative (Negative); Ehrlichia chaffeensis Negative (Negative); Ehrlichia ewingii/canis Negative (Negative); Ehrlichia muris eauclairensis Negative (Negative)
== END 2022-02-13 23:57 | disposition home or self-care (01) ==
PROVIDERS: Emergency Provider Emergency Medicine
DX: R05.9 Cough, unspecified (principal); R50.9 Fever, unspecified; R53.1 Weakness; J44.9 Chronic obstructive pulmonary disease, unspecified; I10 Essential (primary) hypertension; Z20.822 Contact with and (suspected) exposure to COVID-19
CPT/HCPCS: 36410; 80053; 87040; 87637; 87798; 93005; 96361; 96374; 96375; 99284; 99285; 71045; 81003; 81015; 83735; 85025; 86618; 87086; 93010; J1100; J2405

== ENCOUNTER 2022-02-28 03:25 | Outpatient (CLI) | payer MEDICARE, SELFPAY ==
[2022-02-28 12:38] LABS: HCT 35.7 % (36.0-46.0); HGB 11.7 g/dL (11.2-15.7); MCH 29.5 pg (27.0-33.0); MCHC 32.8 % (32.0-36.0); MCV 90 fL (80-95); MPV 10.6 fL (8.0-11.0); Platelet Count 327 10^3/uL (130-400); RBC 3.96 10^6/uL (3.93-5.22); RDW 13.9 % (11.7-14.6); RDW-SD 45.3 fL
[2022-02-28 12:48] LABS: Anion Gap 4.3 mmol/L (3-11); BUN 25 mg/dL (7-18); CO2 29.7 mmol/L (21.0-32.0); CREATININE 1.1 mg/dL (0.55-1.02); Calcium 8.9 mg/dL (8.5-10.1); Chloride 101 mmol/L (98-107); Estimated GFR 49.55 (mL/min/1.73m2); Glucose 102 mg/dL (74-106); Magnesium 2.2 mg/dL (1.8-2.4); Potassium 3.6 mmol/L (3.5-5.1); Sodium 135 mmol/L (136-145)
== END 2022-02-28 03:26 | disposition home or self-care (01) ==
LOC: LBO 03:26
PROVIDERS: PCP Nurse Practitioner Family; Visit Provider Nurse Practitioner Family
DX: I10 Essential (primary) hypertension (principal); R79.89 Other specified abnormal findings of blood chemistry; J44.9 Chronic obstructive pulmonary disease, unspecified
CPT/HCPCS: 36415; 80048; 85027; 83735

== ENCOUNTER 2022-07-30 20:31 | Emergency (ER) | payer MEDICARE, SELFPAY ==
[2022-07-30 20:33] VITALS: BP 178/50; PULSE 62; RESP 16; TEMP 37; O2SAT 96
--- NOTE | 2022-07-30 21:25 | ED.GENADUL_ITS ---
Discharge Plan Disposition Patient Disposition: Home Condition: Stable Discharge Details Clinical Impression: Fluid level behind tympanic membrane of left ear, Acute serous otitis media of left ear, Sinusitis, Cervicalgia Primary Care Provider: Gonzalo De Souza ED Provider: Susana Villela Home Meds and New Rx's Prescriptions: New amoxicillin-pot clavulanate 875-125 mg tablet 1 tab PO BID 10 Days Qty: 20 0RF prednisone 10 mg tablet See Rx Instructions .ROUTE .COMPLEX Qty: 16 0RF Rx Instructions: Take 4 tabs daily for 1 day then 3 tabs daily for 2 days then 2 tabs daily for 2 days then 1 tab daily for 2 days Continued clobetasol [Temovate] 0.05 % ointment 1 applic Topical 3x/wk Qty: 60 Patient Comments: 12/08/2019 uses 2X/Week. managed by [facility] [place] Rx Instructions: 60 GM ghfrakoi-cwnix-jad 149-hyal ac 750 mg-100 mg- 125 mg-1.65 mg tablet 1 tab PO .tab Kosb-Mdbj-Orxsz (yq-BB-wtbpsm) 400-2,000 mcg tablet 1 tab PO DAILY cholecalciferol (vitamin D3) 125 mcg (5,000 unit) capsule 125 mcg PO .COMPLEX Rx Instructions: 125 mcg PO 3 x WEEK; famotidine 20 mg tablet 20 mg PO BID Qty: 60 12RF hydrochlorothiazide 12.5 mg tablet 12.5 mg PO DAILY Qty: 90 4RF lisinopril 5 mg tablet 5 mg PO DAILY Qty: 90 3RF sertraline [Zoloft] 50 mg tablet 50 mg PO DAILY Qty: 90 4RF azelastine 137 mcg (0.1 %) aerosol,spray 137 mcg intranasal ONCE Qty: 30 0RF Rx Instructions: administer into each nostril magnesium oxide 500 mg capsule 500 mg PO DAILY ibuprofen 200 MG tablet 1 tab PO PRN aspirin [Aspirin Low-Strength] 81 MG tablet,chewable 1 tab PO DAILY Tumeric 1 cap PO DAILY budesonide-formoterol [Symbicort] 80-4.5 mcg/actuation HFA aerosol inhaler 2 puff Inhalation BID Qty: 3 4RF ascorbic acid (vitamin C) [Vitamin C] 500 mg Tablet 500 mg PO DAILY Discharge Instructions Instructions: Sinusitis (ED), Ear Infection (ED), Neck Pain (ED) Additional Instructions: Your symptoms may be secondary to an ear and/or sinus infection. Your neck pain can be secondary to referred muscular pain due to a local infection within your left ear and left facial sinuses. Alternate tylenol and motrin as needed and directed for pain. Prescriptions for antibiotics and steroids have been sent electronically to your pharmacy to take as directed until finished. Call your primary care doctor tomorrow to schedule a follow-up appointment for reevaluation within the next week Return immediately to the emergency department if you develop any worsening or new concerning symptoms. Referrals: Lai Kennedy MD [ [facility] STAFF PHYSICIAN] - Discharge Data Discharge Physician: uSsana Villela Medical Decision Making 87-year-old female with a history of hypertension, GERD, COPD who presents for left-sided neck pain radiating to her left head and left shoulder for the past 3 days and decreased hearing in her left ear with facial pain and yellow nasal di scharge for the past 2 days. Blood pressure hypertensive at 178/50 on arrival. Patient states her blood pressure is usually in the 140s. She has been taking her blood pressure medication as directed. Patient appears comfortable and nontoxic. It appears that there is fluid behind her left TM which appears yellow and dull. There is no cerumen impaction or erythema noted. No signs of otitis externa. She does have tenderness overlying the left frontal and maxillary sinus. She does have tenderness to palpation along soft tissue of the left side of the neck extending from anterior to posterior as well as the trapezius. She has no evidence of pre or post auricular lymphadenopathy. She has no drooling, trismus, submandibular swelling. She has no complaint of fever, posterior headache or meningeal signs to suggest meningitis. There is no sore throat or oropharyngeal signs to suggest strep throat or peritonsillar abscess. She has no overlying rash, tingling or burning to suggest shingles. She has no chest pain or shortness of breath with normal heart rate, respiratory rate and oxygen saturation and does not appear consistent with an acute cardiac or pulmonary etiology at this time. Discussed with patient at length that suspect her symptoms may be secondary to a serous otitis media and/or sinusitis and suspect referred pain and local musculoskeletal inflammation. Will cover with Augmentin and prednisone at this time. She is advised to follow-up with her PCP this week for reevaluation. Usual and customary return precautions given prior to discharge. Medical Records Medical records reviewed: Yes I reviewed the patient's medical records. HPI General Mode of arrival: ambulatory . Date/Time Provider Initiated Documentation: 07/30/22 20:31 . Limitations to Documentation: no limitations . Information obtained by: patient . HPI Narrative: Patient is an 87-year-old female with a history of GERD, COPD, hypertension, depression who presents with left-sided neck pain radiating to the left side of her head and left shoulder for the past 3 days with decreased hearing in her left ear for the past 2 days. She does admit to facial pain and yellow nasal discharge and nasal congestion over the past few days as well. She denies any known fever, ear pain, sore throat, chest pain, difficulty breathing. She states she took 3 tabs of ibuprofen earlier with some relief. She has not sought any other medical care prior to this. She denies any other known injury. Related Data Home Medications Medication Instructions Recorded Confirmed aspirin 81 mg chewable tablet 1 tab PO DAILY 07/22/12 06/19/22 (Aspirin Low-Strength) ibuprofen 200 mg tablet 1 tab PO PRN 07/22/12 06/19/22 Tumeric 1 cap PO DAILY 11/12/17 06/19/22 cholecalciferol (vitamin D3) 125 125 mcg PO .COMPLEX 12/08/19 06/19/22 mcg (5,000 unit) capsule clobetasol 0.05 % topical ointment 1 applic topical 3x/wk #60 grams 12/08/19 02/17/22 (Temovate) ppkjvdtgjgf-gjqcuqfzv-[id number]-hyal 1 tab PO .tab 12/08/19 02/17/22 750 mg-100 mg-125 mg-1.65 mg tablet multivitamin-folic acid 400 1 tab PO DAILY 12/08/19 06/19/22 mcg-biotin 2,000 mcg tablet (Pqit-Xmma-Lrywl (bydfqzfy-kdypk-wfvblc)) ascorbic acid (vitamin C) 500 mg 500 mg PO DAILY 05/02/20 06/19/22 tablet (Vitamin C) azelastine 137 mcg (0.1 %) nasal 137 mcg (0.137 mL) intranasal ONCE 12/19/21 06/19/22 spray aerosol #30 mL famotidine 20 mg tablet 20 mg PO BID #60 tabs 12/19/21 06/19/22 hydrochlorothiazide 12.5 mg tablet 12.5 mg PO DAILY #90 tabs 12/19/21 06/19/22 lisinopril 5 mg tablet 5 mg PO DAILY #90 tabs 12/19/21 06/19/22 sertraline 50 mg tablet (Zoloft) 50 mg PO DAILY #90 tabs 12/19/21 06/19/22 magnesium oxide 500 mg capsule 500 mg PO DAILY 01/02/22 06/19/22 budesonide-formoterol HFA 80 2 puff inhalation BID ##3 04/11/22 06/19/22 mcg-4.5 mcg/actuation aerosol inhaler (Symbicort) amoxicillin 875 mg-potassium 1 tab PO BID 10 days #20 tabs 07/30/22 clavulanate 125 mg tablet prednisone 10 mg tablet See Rx Instructions .Route 07/30/22 .COMPLEX #16 tabs Previous Rx's Medication Instructions Recorded azelastine 137 mcg (0.1 %) nasal 137 mcg (0.137 mL) intranasal ONCE 12/19/21 spray aerosol #30 mL famotidine 20 mg tablet 20 mg PO BID #60 tabs 12/19/21 hydrochlorothiazide 12.5 mg tablet 12.5 mg PO DAILY #90 tabs 12/19/21 lisinopril 5 mg tablet 5 mg PO DAILY #90 tabs 12/19/21 sertraline 50 mg tablet (Zoloft) 50 mg PO DAILY #90 tabs 12/19/21 budesonide-formoterol HFA 80 2 puff inhalation BID ##3 04/11/22 mcg-4.5 mcg/actuation aerosol inhaler (Symbicort) amoxicillin 875 mg-potassium 1 tab PO BID 10 days #20 tabs 07/30/22 clavulanate 125 mg tablet prednisone 10 mg tablet See Rx Instructions .Route 07/30/22 .COMPLEX #16 tabs Allergies Allergy/AdvReac Type Severity Reaction Status Date / Time erythromycin base Allergy Pt states Verified 06/19/22 08:26 when she was a kid Macrolide Antibiotics Allergy unknown Verified 06/19/22 08:26 General Stated Complaint: EarProblem BHAVANI: 4 Review of Systems All systems reviewed & are unremarkable except as noted in HPI and below Constitutional Constitutional: Reports as per HPI, Denies chills and Denies fever(s) Eyes Eyes: Denies blurry vision ENT Ears, Nose, Mouth, and Throat: Denies dizziness, Reports hearing loss, Reports neck pain, Denies sore throat and Denies throat swelling Cardiovascular Cardiovascular: Denies chest pain and Denies dyspnea Respiratory Respiratory: Denies cough and Denies dyspnea Gastrointestinal Gastrointestinal: Denies abdominal pain, Denies diarrhea and Denies vomiting Genitourinary Genitourinary: Denies hematuria and Denies dysuria Musculoskeletal Musculoskeletal: Denies back pain, Reports neck pain and Denies numbness Integumentary/Breasts Skin/Breast: Denies lesions and Denies rash Neurologic Neurologic: Denies dizziness, Denies localized weakness and Denies numbness Allergic/Immunologic Allergic/Immunologic: Denies throat swelling PFSH All Active Problems (Updated 07/30/22 @ 21:39 by Susana Villela DO) Fluid level behind tympanic membrane of left ear (Acute) Acute serous otitis media of left ear (Acute) Sinusitis (Acute) Cervicalgia (Acute) Pneumonia (Acute) Corns and callosities (Acute) Vulvar irritation (Acute) LICHEN SCLEROSIS OF V[place]VA PER [facility] 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 Kennedy Presbylarynges (Acute 03/22/16) Low back pain (Chronic) chronic LBP and stiffness Increased frequency of urination (Chronic) Gastroesophageal reflux disease (Chronic) Essential hypertension (Chronic 01/01/13) Dermatitis (Acute 12/31/13) Depressive disorder (Chronic) COPD (chronic obstructive pulmonary disease) (Acute) quit smoking 2002 Atrophic vaginitis (Acute 05/13/15) Allergic rhinitis (Chronic) Actinic keratosis (Chronic) nose; Dr. Wolfe Elevated TSH (Acute) Migraine aura without headache (Acute) Medical History (Updated 07/30/22 @ 21:39 by Susana Villela DO) COPD (chronic obstructive pulmonary disease) Ganglion cyst GERD (gastroesophageal reflux disease) Hearing loss Dr. Kennedy Impacted cerumen, right ear (03/22/16) Ingrowing eyelash of lower lid (R) Mass of joint of right wrist Pain, foot Surgical History Cholecystectomy (~2011) Colonoscopy - MAC (03/27/16) Open Carpal Tunnel release (~2007) X 2 Family History Son Acromegaly Depression Bowel cancer Daughter Depression Skin cancer Social History Smoking/Tobacco Use Status: Former Tobacco Use Quit Date: 04/08/89 Tobacco: How many years used: 48 Second Hand Exposure: No Smoking risk assessment performed?: Yes Alcohol Intake: current Alcohol Intake frequency: holidays/special occasions only Alcohol type: wine Drug use: Rarely Substance use type: does not use Counseling given: No Counseling provided: none Adopted: Yes Caregiver/Support person: Yes Household members: spouse Housing: apartment Communication Needs: Hard of Hearing and Corrective Lenses Do you need help understanding health information?: Never Pets and animals: No Sexually active: No Do you think of yourself as: straight/heterosexual Current gender identity: female What is your relationship status?: How often do you talk on the phone with friends or family?: three or more times per week How often do you get together with friends or relatives?: once per week How often do you attend mu-ism or restorationist services?: 4 or more times per year Do you belong to any clubs or organized social groups?: yes Panel score (0-1 are the most socially isolated patients): 4 What type of physical activity do you participate in: walking and other Details: Excercise class Duration: 15-30 minutes/day Frequency: 1-2 times per week Michaela/Mormon: Mormonism Special michaela needs: No Seatbelt use: always Helmet use: No Drive intox or ride w/intox driver trainer: No Do you feel safe at home: Yes Do you feel safe in your relationship?: Yes Exam Const General: cooperative, healthy appearing and no acute distress HENMT Head: normal to inspection Ears: hearing grossly normal bilaterally, external ears normal and TM abnormal with fluid behind the TM on the left General nose exam: external nose normal Face and sinus: normal facial exam and sinus tenderness frontal (left) and max illary (left) Mouth: oral mucosae normal Teeth and gingiva: dentition normal Throat: posterior oropharynx normal Eyes General: appearance normal, both eyes and all related structures Pupils: PERRL EOM: EOM intact bilaterally Neck Neck: normal visual inspection, no meningeal signs, trachea midline, supple, no anterior neck swelling and No submandibular swelling Lymphatic: no lymphadenopathy noted Other: Left lateral neck tender to palpation from anterior to posterior aspect. Left lateral neck pain reproducible with left head rotation and left sidebending. Chest Chest: normal inspection of the chest and no tenderness Resp Effort & Inspection: normal respiratory effort and able to speak in complete sentences Cardio Rate: regular rate Skin General skin exam: no rashes or lesions noted Neuro General: patient alert, patient awake, patient oriented x3, moves all extremities and no meningeal signs Cognition: normal cognition Speech: speech normal Motor: muscle tone normal throughout Sensory Exam: no sensory deficits noted Extrem General: normal to inspection, full ROM, capillary refill normal, no calf tenderness bilaterally and no edema Psych Appearance: grossly normal Mental Status: mental status grossly normal Speech and Movement: speech and movement normal Affect: normal affect Course Vital Signs Vital signs: Vital Signs Temperature 98.6 F 07/30/22 20:33 Pulse 62 07/30/22 20:33 Respiratory Rate 16 07/30/22 20:33 Blood Pressure 178/50 H 07/30/22 20:33 Pulse Oximetry 96 07/30/22 20:33 Temperature 98.6 F 07/30/22 20:33 Temperature Source Oral 07/30/22 20:33 Pulse 62 07/30/22 20:33 Respiratory Rate 16 07/30/22 20:33 Blood Pressure 178/50 H 07/30/22 20:33 Blood Pressure Position Sitting 07/30/22 20:33 Pulse Oximetry 96 07/30/22 20:33 Oxygen Delivery Method Room Air 07/30/22 20:33 Oxygen Flow Rate 0 07/30/22 20:33 Pain Level 5 07/30/22 20:33 Comment states the pain keeps her awake 07/30/22 20:33
[2022-07-30] MEDS: Amoxicillin 875/Clav. 125 TAB PO (21:31)
[2022-07-30] MEDS: predniSONE 20 MG TAB 40 MG PO (21:31)
[2022-07-30 21:51] VITALS: BP 126/74; PULSE 77; RESP 18; O2SAT 97
== END 2022-07-30 21:50 | disposition home or self-care (01) ==
PROVIDERS: Emergency Provider Physician Assistant; PCP Nurse Practitioner Family
DX: H65.02 Acute serous otitis media, left ear (principal); J32.9 Chronic sinusitis, unspecified; M54.2 Cervicalgia; I10 Essential (primary) hypertension; J44.9 Chronic obstructive pulmonary disease, unspecified; Z79.82 Long term (current) use of aspirin; Z79.51 Long term (current) use of inhaled steroids
CPT/HCPCS: 99283; 99284; J7512

== ENCOUNTER 2022-12-13 04:14 | Outpatient (CLI) | payer MEDICARE, SELFPAY ==
[2022-12-13 12:38] LABS: TSH (W/Ref FT4) 1.98 uIU/mL (0.36-3.74)
== END 2022-12-13 04:15 | disposition home or self-care (01) ==
LOC: LBO 04:15
PROVIDERS: PCP Nurse Practitioner Family; Visit Provider Nurse Practitioner Family
DX: I10 Essential (primary) hypertension (principal); R94.6 Abnormal results of thyroid function studies
CPT/HCPCS: 36415; 84443

== ENCOUNTER 2022-12-25 14:48 | Outpatient (REF) | payer MEDICARE, SELFPAY ==
[2022-12-25 15:34] LABS: HCT 39.9 % (36.0-46.0); HGB 13.1 g/dL (11.2-15.7); MCH 29.3 pg (27.0-33.0); MCHC 32.8 % (32.0-36.0); MCV 89 fL (80-95); Platelet Count 271 10^3/uL (130-400); RBC 4.47 10^6/uL (3.93-5.22); RDW 14.2 % (11.7-14.6); RDW-SD 46.7 fL; WBC 7.11 10^3/uL (4.4-10.8)
[2022-12-25 15:42] LABS: BUN 18 mg/dL (7-18); Chloride 103 mmol/L (98-107); Estimated GFR 55.21 (mL/min/1.73m2); Glucose 111 mg/dL (74-106); Potassium 4.3 mmol/L (3.5-5.1); Sodium 140 mmol/L (136-145)
[2022-12-25 17:51] LABS: Lab Add On Test DONE
== END 2022-12-25 14:49 | disposition home or self-care (01) ==
LOC: LBN 14:48
PROVIDERS: PCP Nurse Practitioner Family; Visit Provider Nurse Practitioner Family
DX: I10 Essential (primary) hypertension (principal); R73.9 Hyperglycemia, unspecified; K21.9 Gastro-esophageal reflux disease without esophagitis; J38.7 Other diseases of larynx
CPT/HCPCS: 80048; 85027; 83036

== ENCOUNTER → 2023-04-10 10:28 | Outpatient (BNVA) | payer MEDICARE, SELFPAY | PROVIDERS: PCP Nurse Practitioner Family; Referring Provider Nurse Practitioner Family; Visit Provider Podiatrist | DX: M79.671 Pain in right foot (principal); M79.672 Pain in left foot; I73.89 Other specified peripheral vascular diseases; L84 Corns and callosities; R09.89 Other specified symptoms and signs involving the circulatory and respiratory systems; R60.0 Localized edema; R23.1 Pallor; L65.9 Nonscarring hair loss, unspecified; L60.3 Nail dystrophy | CPT/HCPCS: 11056 ==

== ENCOUNTER → 2023-05-20 10:51 | Outpatient (BNVA) | payer MEDICARE, SELFPAY | PROVIDERS: PCP Nurse Practitioner Family; Referring Provider Podiatrist; Visit Provider Physical Therapy Assistant | DX: I73.9 Peripheral vascular disease, unspecified (principal) | CPT/HCPCS: 93922 ==

== ENCOUNTER → 2023-05-22 09:46 | Outpatient (BNVA) | payer MEDICARE, SELFPAY | PROVIDERS: PCP Nurse Practitioner Family; Referring Provider Nurse Practitioner Family; Visit Provider Podiatrist | DX: I73.9 Peripheral vascular disease, unspecified (principal); R25.2 Cramp and spasm; R20.2 Paresthesia of skin | CPT/HCPCS: 99213 ==

== ENCOUNTER 2023-05-22 10:09 | Emergency (ER) | payer MEDICARE, SELFPAY ==
[2023-05-22] VITALS (22 sets, daily range): BP systolic 162–177; BP diastolic 45–74; PULSE 55–73; RESP 10–23; TEMP 36.4; O2SAT 91–98
--- NOTE | 2023-05-22 10:30 | DI.CT_ITS ---
Exam(s) CT BRAIN NECK CTA EXAM: CT BRAIN NECK CTA CLINICAL HISTORY: dizzy, headache, eye pressure, neck pain. TECHNIQUE: Imaging Protocol: Axial CT angiography was performed with multi-slice acquisition and mu lti-planar and MIP reconstructions. CONTRAST MATERIAL: Intravenous: Omnipaque 350 Contrast volume:100 ml COMPARISON: No exams were available for comparison FINDINGS: CT Head W/O and W contrast: Ventricles and Extra axial spaces: Normal in size and morphology for the patient's age. Hemorrhage: None. Cerebral parenchyma: No evidence of acute infarct or mass. Atrophy Midline shift: None. Brainstem/Cerebellum: No acute findings.. Calvarium: Normal. Visualized Paranasal sinuses/Mastoids: Clear. Soft Tissues: Unremarkable. Enhancement: Normal. CTA Brain W: Internal Carotid Arteries: Petrous: Normal. Cavernous: Normal. Cerebral: Normal. Middle Cerebral Arteries: Right: No aneurysm, occlusion or significant stenosis. Left: No aneurysm, occlusion or significant stenosis. Anterior Cerebral Arteries: Right: No aneurysm, occlusion or significant stenosis. Left: No aneurysm, occlusion or significant stenosis. Posterior cerebral Arteries: Right: No aneurysm, occlusion or significant stenosis. Left: No aneurysm, occlusion or significant stenosis. Vertebral Arteries: Right: No aneurysm, occlusion or significant stenosis. Left: No aneurysm, occlusion or significant stenosis. Basilar Artery: No aneurysm, occlusion or significant stenosis. CTA Neck W: Common Carotid: Right: No dissection, occlusion or significant stenosis. Left: No dissection, occlusion or significant stenosis. External Carotid: Right: Moderate stenosis at origin. No dissection, occlusion or significant stenosis. Left: No dissection, occlusion or significant stenosis. Internal Carotid: Right: Mild calcific plaque. . No dissection, occlusion or significant stenosis. Tortuous distally. Left: Mild calcific plaque. No dissection, occlusion or significant stenosis. Tortuous . Vertebral Artery: Right: No dissection, occlusion or significant stenosis. Left: No dissection, occlusion or significant stenosis. Lung Apices: Normal. Bones: No acute abnormality. Soft Tissues: Normal. IMPRESSION: 1. CTA brain: Normal CTA examination of the [place] of [place]. 2. Head CT: Unremarkable CT Head. 3. CTA neck: Mild calcific plaque at the common carotid bulbs and proximal internal carotid arteries without significant internal carotid artery stenosis. Moderate narrowing the origin of the right exte rnal carotid artery. RADIATION DOSE DELIVERED: 1,765.2mGy.cm Total DLP DATA REPOSITORY: All CT scans at this facility are submitted to the National Radiology Data Registry (NRDR) Dose Index Registry (DIR) with the [employer] ([employer]). RADIATION OPTIMIZATION: All CT scans at this facility use at least one of these dose optimization te chniques: automated exposure control; mA and/or kV adjustment per patient size (includes targeted exa ms where dose is matched to clinical indication); or iterative reconstruction.
--- NOTE | 2023-05-22 10:30 | RT.EKG_ITS ---
APPROVED REPORT Exam: Resting ECG Reason for Exam: tesha Patient Location: E HR:57 bpm ECG Measurements Heart Rate 57 AXIS NM 166 P 46 QRSd 117 QRS -33 QT 454 T 47 QTc 444 Conclusion Sinus bradycardia...rate< 60 Left ventricular hypertrophy...multiple LVH criteria
[2023-05-22 11:13] LABS: Abs Immature Grans 0.02 10^3/uL (0.0-0.06); Absolute Basophil Count 0.05 10^3/uL (0.0-0.2); Absolute Eosinophil Count 0.37 10^3/uL (0.0-0.7); Absolute Lymphocyte Count 1.64 10^3/uL (1.2-3.4); Absolute Monocyte Count 0.82 10^3/uL (0.1-0.8); Absolute Neutrophil Count 6.49 10^3/uL (1.2-6.7); Basophils % 0.5; Eosinophils % 3.9; HCT 42.5 % (36.0-46.0); HGB 13.7 g/dL (11.2-15.7); Immature Grans % 0.2; Lymphocytes % 17.5; MCH 28.6 pg (27.0-33.0); MCHC 32.2 % (32.0-36.0); MCV 89 fL (80-95); MPV 10.6 fL (8.0-11.0); Monocytes % 8.7; Neutrophils % 69.2; Platelet Count 261 10^3/uL (130-400); RBC 4.79 10^6/uL (3.93-5.22); RDW 13.9 % (11.7-14.6); RDW-SD 45.1 fL; WBC 9.39 10^3/uL (4.4-10.8)
[2023-05-22 11:15] LABS: ESR 16 mm/hr (0-30)
[2023-05-22] MEDS: Dexamethasone 4 MG/ML VIAL IVP (11:23)
[2023-05-22] MEDS: Orphenadrine 60 MG/2 ML VIAL 30 MG IVP (11:24)
[2023-05-22] MEDS: Prochlorperazine 10 MG/2 ML VIAL 5 MG IVP (11:25)
[2023-05-22 11:35] LABS: ALT 25 U/L (14-59); AST 20 U/L (15-37); Albumin 3.7 g/dL (3.4-5.0); Alkaline Phosphatase 92 U/L (46-116); Anion Gap 10.3 mmol/L (3-11); BUN 24 mg/dL (7-18); Bilirubin, Total 0.4 mg/dL (0.2-1.0); CO2 28.7 mmol/L (21.0-32.0); CREATININE 0.9 mg/dL (0.55-1.02); Calcium 9.2 mg/dL (8.5-10.1); Chloride 104 mmol/L (98-107); Estimated GFR 62.65 (mL/min/1.73m2); Glucose 91 mg/dL (74-106); Potassium 3.9 mmol/L (3.5-5.1); Sodium 143 mmol/L (136-145); Total Protein 7.8 g/dL (6.4-8.2); Troponin I < 50 ng/L (< or =60)
[2023-05-22 11:50] LABS: COVID-19 PCR Negative (Negative); Influenza A PCR Negative (Negative); Influenza B PCR Negative (Negative); RSV PCR Negative (Negative)
[2023-05-22 11:53] LABS: Source Nasopharynx
[2023-05-22] MEDS: Normal Saline - Diluent 50 ML VIAL IJ (12:23)
[2023-05-22] MEDS: Omnipaque 350 MG/ML 100 ML BTL IJ (12:24)
--- NOTE | 2023-05-22 12:30 | DI.RAD_ITS ---
Exam(s) XR CHEST 2V PA LATERAL EXAM: XR CHEST 2V PA LATERAL CLINICAL HISTORY: chest pain TECHNIQUE: 2D digital imaging was performed. COMPARISON: CR,XR XR PORTABLE CHEST AP from 02/13/2022 FINDINGS: HEART: Normal size. Aorta: Not dilated. PULMONARY VASCULATURE: Normal. LUNGS: Clear. PLEURAL SPACE: No pleural effusion or pneumothorax. BONE:Scoliosis and degenerative changes. Soft tissues: Unremarkable. IMPRESSION: No acute abnormality. DATA REPOSITORY: RADIATION DOSE DELIVERED:
[2023-05-22 13:29] LABS: Bilirubin Negative (Negative); Blood Negative (Negative); Clarity Clear (Clear); Glucose Negative (Negative); Ketones Negative (Negative); Leukocyte Esterase Trace (Negative); Nitrite Negative (Negative); Urobilinogen 0.2 mg/dL (Up to 0.2); pH 5.5 (5-8)
[2023-05-22 13:59] LABS: Bacteria Moderate HPF (Negative); C & S Indicated? Yes; Epithelial Cells Few HPF (Negative); Other Cells Few Renal (Negative); RBC Negative HPF (0-2)
--- NOTE | 2023-05-22 15:07 | ED.GENADUL_ITS ---
HPI General Date/Time Provider Initiated Documentation: 05/22/23 10:10 . HPI Narrative: This 87-year-old female presents with headache and neck pain. She states her symptoms started a week ago denies history of similar symptoms in the past. Having trouble turning her neck secondary to pain. States she has some pressure in the temporal region, denies chest pain or shortness of breath. Denies any fever or chills. Denies known sick contacts or cough. Denies rashes or lesions denies any vision change.. Related Data Home Medications Medication Instructions Recorded Confirmed aspirin 81 mg chewable tablet 1 tab PO DAILY 07/22/12 05/22/23 (Aspirin Low-Strength) ibuprofen 200 mg tablet 1 tab PO PRN 07/22/12 05/22/23 clobetasol 0.05 % topical ointment 1 applic topical 3x/wk #60 grams 12/08/19 05/22/23 (Temovate) multivitamin-folic acid 400 1 tab PO .2 times weekly 12/07/22 05/22/23 mcg-biotin 2,000 mcg tablet (Ards-Tkee-Vwmyw (ktmurgso-sygpw-gujxfz)) budesonide-formoterol HFA 80 2 puff inhalation BID ##3 12/25/22 05/22/23 mcg-4.5 mcg/actuation aerosol inhaler (Symbicort) cetirizine 10 mg tablet (Zyrtec) 10 mg PO DAILY PRN allergy 12/25/22 05/22/23 symptoms #30 tabs famotidine 20 mg tablet 20 mg PO BID #60 tabs 12/25/22 05/22/23 hydrochlorothiazide 12.5 mg tablet 12.5 mg PO DAILY #90 tabs 12/25/22 05/22/23 lisinopril 5 mg tablet 5 mg PO DAILY #90 tabs 12/25/22 05/22/23 omeprazole 40 mg capsule,delayed 40 mg PO .2 X week #24 caps 12/25/22 05/22/23 release sertraline 50 mg tablet (Zoloft) 50 mg PO DAILY #90 tabs 12/25/22 05/22/23 albuterol sulfate 90 mcg/actuation See Rx Instructions .Route 03/11/23 05/22/23 aerosol inhaler .COMPLEX #8.5 grams inhalational spacing device #1 ea 03/15/23 05/22/23 (BreatheRite MDI Spacer) cyclobenzaprine 5 mg tablet 5 mg PO Q12H #10 tabs 05/22/23 prednisone 20 mg tablet 40 mg (2 x 20 mg) PO ONCE #10 tabs 05/22/23 Previous Rx's Medication Instructions Recorded budesonide-formoterol HFA 80 2 puff inhalation BID ##3 12/25/22 mcg-4.5 mcg/actuation aerosol inhaler (Symbicort) cetirizine 10 mg tablet (Zyrtec) 10 mg PO DAILY PRN allergy 12/25/22 symptoms #30 tabs famotidine 20 mg tablet 20 mg PO BID #60 tabs 12/25/22 hydrochlorothiazide 12.5 mg tablet 12.5 mg PO DAILY #90 tabs 12/25/22 lisinopril 5 mg tablet 5 mg PO DAILY #90 tabs 12/25/22 omeprazole 40 mg capsule,delayed 40 mg PO .2 X week #24 caps 12/25/22 release sertraline 50 mg tablet (Zoloft) 50 mg PO DAILY #90 tabs 12/25/22 albuterol sulfate 90 mcg/actuation See Rx Instructions .Route 03/11/23 aerosol inhaler .COMPLEX #8.5 grams inhalational spacing device #1 ea 03/15/23 (BreatheRite MDI Spacer) cyclobenzaprine 5 mg tablet 5 mg PO Q12H #10 tabs 05/22/23 prednisone 20 mg tablet 40 mg (2 x 20 mg) PO ONCE #10 tabs 05/22/23 Allergies Allergy/AdvReac Type Severity Reaction Status Date / Time erythromycin base Allergy Pt states Verified 05/22/23 10:20 when she was a kid Macrolide Antibiotics Allergy unknown Verified 05/22/23 10:20 General Stated Complaint: [facility] BHAVANI: 3 Course Vital Signs Vital signs: Vital Signs Temperature 36.4 C 05/22/23 10:15 Pulse 73 05/22/23 10:15 Respiratory Rate 16 05/22/23 10:15 Blood Pressure 163/45 H 05/22/23 10:15 Pulse Oximetry 97 05/22/23 10:15 Temperature 36.4 C 05/22/23 10:24 Pulse 57 L 05/22/23 14:28 Pulse 57 L 05/22/23 14:30 Respiratory Rate 16 02/14/24 14:30 Respiratory Effort Normal, Non-Labored 05/22/23 10:24 Respiratory Depth Normal 05/22/23 10:24 Respiratory Pattern Normal 05/22/23 10:24 Blood Pressure 162/74 H 05/22/23 14:30 Blood Pressure Mean 101 05/22/23 14:28 Pulse Oximetry 95 05/22/23 14:30 Oxygen Delivery Method Room Air 05/22/23 10:24 Oxygen Flow Rate 0 05/22/23 10:24 Pain Level 3 05/22/23 14:25 Lab/Test Results Lab/Test Results: 05/22/23 10:45 Urine - Reflex from Ua Urine Culture - Pending Laboratory Tests Range/Units 05/22/23 05/22/23 05/22/23 10:45 11:05 13:45 WBC (4.4-10.8) 10^3/uL 9.39 RBC (3.93-5.22) 10^6/uL 4.79 Hgb (11.2-15.7) g/dL 13.7 Hct (36.0-46.0) % 42.5 MCV (80-95) fL 89 MCH (27.0-33.0) pg 28.6 MCHC (32.0-36.0) % 32.2 RDW (11.7-14.6) % 13.9 Plt Count (130-400) 10^3/uL 261 MPV (8.0-11.0) fL 10.6 Immature Gran % 0.2 Neutrophils % 69.2 Lymphocytes % 17.5 Monocytes % 8.7 Eosinophils % 3.9 Basophils % 0.5 Nucleated RBC % (0.0-0.3) % 0.0 Absolute Neutrophils (1.2-6.7) 10^3/uL 6.49 Absolute Lymphocytes (1.2-3.4) 10^3/uL 1.64 Absolute Monocytes (0.1-0.8) 10^3/uL 0.82 H Absolute Eosinophils (0.0-0.7) 10^3/uL 0.37 Absolute Basophils (0.0-0.2) 10^3/uL 0.05 ESR (0-30) mm/hr 16 Sodium (136-145) mmol/L 143 Potassium (3.5-5.1) mmol/L 3.9 Chloride (98-107) mmol/L 104 Carbon Dioxide (21.0-32.0) mmol/L 28.7 Anion Gap (3-11) mmol/L 10.3 BUN (7-18) mg/dL 24 H Creatinine (0.55-1.02) mg/dL 0.9 Est GFR (CKD-EPI 2020) (mL/min/1.73m2) 62.65 Glucose (74-106) mg/dL 91 Calcium (8.5-10.1) mg/dL 9.2 Total Bilirubin (0.2-1.0) mg/dL 0.4 AST (15-37) U/L 20 ALT (14-59) U/L 25 Alkaline Phosphatase (46-116) U/L 92 Troponin I (< or =60) ng/L < 50 Cancelled C-Reactive Protein (<or=0.5) mg/dL 0.60 H Total Protein (6.4-8.2) g/dL 7.8 Albumin (3.4-5.0) g/dL 3.7 Urine Color (Yellow) Yellow Urine Clarity (Clear) Clear Urine pH (5-8) 5.5 Ur Specific [place] (1.005-1.025) 1.010 Urine Protein (Neg-Trace) mg/dL Negative Urine Ketones (Negative) mg/dL Negative Urine Blood (Negative) Negative Urine Nitrite (Negative) Negative Urine Bilirubin (Negative) Negative Urine Urobilinogen (Up to 0.2) mg/dL 0.2 Ur Leukocyte Esterase (Negative) Trace H Urine RBC (0-2) HPF Negative Urine WBC (0-5) HPF 5-10 Ur Epithelial Cells (Negative) HPF Few Urine Crystals Not Applicable Urine Bacteria (Negative) HPF Moderate Urine Mucus Not Applicable Urine Other (Negative) Few Renal Ur Culture Indicated? Yes Urine Glucose (Negative) mg/dL Negative COVID-19 Source Nasopharynx SARS-CoV-2 (PCR) (Negative) Negative Influenza Type A (PCR) (Negative) Negative Influenza Type B (PCR) (Negative) Negative RSV (PCR) (Negative) Negative Medical Decision Making 87-year-old female presenting with neck pain a onset 1 week prior to arrival Nonfocal neurological exam, no tenderness over temporal artery, pupils equal round reactive to light and accommodation, tenderness with lateral rotation of her neck, able to flex and extend her head Clinically low suspicion for meningitis Neurovascularly intact, cranial nerves II through XII intact, lungs clear to auscultation bilaterally, intermittent dizziness with headaches, will order CTA which does not show evidence of acute abnormality, moderate stenosis right carotid, will follow-up with her doctor regarding this finding Labs do not show significant acute abnormality I did perform a nerve block, patient received occipital nerve block with good relief of her headache, complete resolution of headache, she is continues to have some neck pain but is feeling improved after Norflex, steroid, and Tylenol Chest x-ray per radiology interpretation my review does not show acute abnormality, CTA results reviewed from below 6 pretty significant anasarca We did talk about an LP but again my suspicion that this is meningitis is quite low and patient prefers to hold on having this procedure at this time r will return should she have new or worsening persistent symptoms She will take Flexeril and steroid at home return precautions reviewed and patient expressed understanding Quality:SDOH Health Related Social Needs: No Data to Display PFSH All Active Problems (Updated 05/22/23 @ 14:17 by JAZZ Kam) Headache (Acute) Acute neck pain (Acute) Intermittent claudication (Acute) Cramping of feet (Acute) Foot pain, left (Acute) Foot pain, right (Acute) Peripheral vascular disease, unspecified (Chronic) Hyperglycemia (Acute) Urine abnormality (Acute) Environmental allergies (Acute) Corns and callosities (Acute) Elevated TSH (Acute) Migraine aura without headache (Acute) Actinic keratosis (Chronic) nose; Dr. Wolfe Allergic rhinitis (Chronic) Atrophic vaginitis (Acute 05/13/15) COPD (chronic obstructive pulmonary disease) (Acute) quit smoking 2002 Depressive disorder (Chronic) Dermatitis (Acute 12/31/13) Essential hypertension (Chronic 01/01/13) Gastroesophageal reflux disease (Chronic) Increased frequency of urination (Chronic) Low back pain (Chronic) chronic LBP and stiffness Presbylarynges (Acute 03/22/16) 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 Kennedy Vulvar irritation (Acute) LICHEN SCLEROSIS OF VULVA PER [facility] GERD (gastroesophageal reflux disease) (Chronic) Medical History Pneumonia Pain, foot Ingrowing eyelash of lower lid (R) Ganglion cyst Mass of joint of right wrist Hearing loss Dr. Kennedy Impacted cerumen, right ear (03/22/16) COPD (chronic obstructive pulmonary disease) Surgical History Open Carpal Tunnel release (~2007) X 2 Colonoscopy - MAC (03/27/16) Cholecystectomy (~2011) Family History Son Acromegaly Depression Bowel cancer Daughter Depression Skin cancer Social History Smoking/Tobacco Use Status: Former Tobacco Use Quit Date: 04/08/89 Tobacco: How many years used: 48 Second Hand Exposure: No Smoking risk assessment performed?: Yes Alcohol Intake: current Alcohol Intake frequency: holidays/special occasions only Alcohol type: wine Drug use: Rarely Substance use type: does not use Counseling given: No Counseling provided: none Adopted: Yes Caregiver/Support person: Yes Household members: spouse Housing: apartment Communication Needs: Hard of Hearing and Corrective Lenses Do you need help understanding health information?: Never Pets and animals: No Sexually active: No Do you think of yourself as: straight/heterosexual Current gender identity: female What is your relationship status?: How often do you talk on the phone with friends or family?: three or more times per week How often do you get together with friends or relatives?: once per week How often do you attend anglican or methodist services?: 4 or more times per year Do you belong to any clubs or organized social groups?: yes Panel score (0-1 are the most socially isolated patients): 4 What type of physical activity do you participate in: walking and other Details: Excercise class Duration: 15-30 minutes/day Frequency: 1-2 times per week Michaela/Confucianist: [employer] Special michaela needs: No Seatbelt use: always Helmet use: No Drive intox 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 managed by [facility]. DL Rx Instructions: 60 GM Slzo-Ntur-Gvxns (cb-MJ-lxtsun) 400-2,000 mcg tablet 1 tab PO .2 times weekly budesonide-formoterol [Symbicort] 80-4.5 mcg/actuation HFA aerosol inhaler 2 puff Inhalation BID Qty: 3 4RF cetirizine [Zyrtec] 10 mg tablet 10 mg PO DAILY PRN (Reason: allergy symptoms) Qty: 30 0RF famotidine 20 mg tablet 20 mg PO BID Qty: 60 12RF hydrochlorothiazide 12.5 mg tablet 12.5 mg PO DAILY Qty: 90 4RF lisinopril 5 mg tablet 5 mg PO DAILY Qty: 90 3RF omeprazole 40 mg capsule,delayed release(DR/EC) 40 mg PO .2 X week Qty: 24 4RF sertraline [Zoloft] 50 mg tablet 50 mg PO DAILY Qty: 90 4RF ibuprofen 200 MG tablet 1 tab PO PRN aspirin [Aspirin Low-Strength] 81 MG tablet,chewable 1 tab PO DAILY albuterol sulfate 90 mcg/actuation HFA aerosol inhaler See Rx Instructions .ROUTE .COMPLEX Qty: 8.5 0RF Dose Instruction: INHALE TWO PUFFS BY MOUTH EVERY 6 HOURS NEEDED FOR SHORTNESS OF BREATH Rx Instructions: INHALE TWO PUFFS BY MOUTH EVERY 6 HOURS NEEDED FOR SHORTNESS OF BREATH (DME) BreatheRite MDI Spacer Spacer See Rx Instructions .Route Qty: 1 0RF Rx Instructions: As directed Discharge Instructions Instructions: General Headache (ED), Neck Pain (ED) Additional Instructions: Take the Flexeril as prescribed and steroid as prescribed, you received a dose of steroid today, you take your next dose of steroid tomorrow, you may take another dose of the Flexeril this evening warm compresses to your neck at home warm compresses to your neck at home please return should you develop fever, chills, worsening symptoms including headache or dizziness Your tests today are reassuring, you do have some carotid disease in your right artery, please follow-up with your doctor regarding this finding Referrals: Gonzalo De Souza NP [Primary Care Provider] -
== END 2023-05-22 14:38 | disposition home or self-care (01) ==
PROVIDERS: Emergency Provider Physician Assistant; PCP Nurse Practitioner Family
DX: M54.2 Cervicalgia (principal); M51.9 Unspecified thoracic, thoracolumbar and lumbosacral intervertebral disc disorder; R00.1 Bradycardia, unspecified; I10 Essential (primary) hypertension; J44.9 Chronic obstructive pulmonary disease, unspecified; Z11.52 Encounter for screening for COVID-19; Z79.82 Long term (current) use of aspirin; Z87.891 Personal history of nicotine dependence
CPT/HCPCS: 64450; 70496; 70498; 80053; 85652; 87077; 87637; 93005; 96374; 96375; 99285; J2360; 71046; 81003; 81015; 84484; 85025; 86140; 87086; 87186; 93010; 99284; J0131; J0780; J1100; J3490

== ENCOUNTER 2024-02-05 00:42 | Outpatient (CLI) | payer MEDICARE, SELFPAY ==
--- NOTE | 2024-02-05 07:45 | DI.MAMMO_ITS ---
Exam(s) MAMMO SCREENING EXAM: MAMMO SCREENING CLINICAL HISTORY: screening,Z12.39 TECHNIQUE: Mammograms were interpreted according to the usual protocol including computer analysis w [employer] CAD system, tomosynthesis and C-view imaging. COMPARISON: 2013 through 2018 FINDINGS: The breasts are composed of scattered fibroglandular densities, Breast Density category B. No suspicious masses or suspicious microcalcifications are seen. No skin thickening or abnormal axillary lymph nodes are seen. There has been no significant change from prior exams. IMPRESSION: BI-RADS Category 1, Negative mammogram Yearly screening mammography is recommended. Breast Density - Category B, scattered fibroglandular densities. A negative radiographic report should not delay biopsy if a dominant or clinically suspicious mass is present. Up to ten percent of cancers are not identified on mammography. A negative report may reinforce clinical impression. Adenosis and dense breasts may obscure an underlying neoplasm. False positive reports average 6 to 10%. Patient will receive a letter notifying them of these results.
== END 2024-02-05 01:02 ==
LOC: DI 00:42
PROVIDERS: PCP Nurse Practitioner Adult Health; Visit Provider Nurse Practitioner Adult Health
DX: Z12.31 Encounter for screening mammogram for malignant neoplasm of breast (principal)
CPT/HCPCS: 77063; 77067

== ENCOUNTER 2024-05-05 03:11 | Outpatient (CLI) | payer MEDICARE, SELFPAY ==
[2024-05-05 11:55] LABS: Anion Gap 6.3 mmol/L (3-11); BUN 21 mg/dL (7-18); CO2 29.7 mmol/L (21.0-32.0); Calcium 9.1 mg/dL (8.5-10.1); Chloride 104 mmol/L (98-107); Estimated GFR 54.87 (mL/min/1.73m2); Glucose 106 mg/dL (74-106); Potassium 3.8 mmol/L (3.5-5.1); Sodium 140 mmol/L (136-145)
[2024-05-05 12:02] LABS: Hemoglobin A1C 5.9 % (<5.7)
== END 2024-05-05 03:12 | disposition home or self-care (01) ==
LOC: LBO 03:11
PROVIDERS: PCP Nurse Practitioner Adult Health; Visit Provider Nurse Practitioner Adult Health
DX: R73.01 Impaired fasting glucose (principal); I10 Essential (primary) hypertension
CPT/HCPCS: 36415; 80048; 83036

== ENCOUNTER 2024-06-08 16:26 | Outpatient (CLI) | payer MEDICARE, SELFPAY ==
[2024-06-08 15:26] LABS: Abs Immature Grans 0.03 10^3/uL (0.0-0.06); Absolute Basophil Count 0.03 10^3/uL (0.0-0.2); Absolute Eosinophil Count 0.26 10^3/uL (0.0-0.7); Absolute Lymphocyte Count 1.98 10^3/uL (1.2-3.4); Absolute Monocyte Count 0.99 10^3/uL (0.1-0.8); Absolute Neutrophil Count 5.73 10^3/uL (1.2-6.7); Basophils % 0.3 %; Eosinophils % 2.9 %; HGB 13.4 g/dL (11.2-15.7); Immature Grans % 0.3 %; MCH 29.7 pg (27.0-33.0); MCHC 32.7 % (32.0-36.0); MCV 91 fL (80-95); MPV 10.7 fL (8.0-11.0); Neutrophils % 63.5 %; Platelet Count 249 10^3/uL (130-400); RBC 4.51 10^6/uL (3.93-5.22); RDW 14.1 % (11.7-14.6); RDW-SD 46.9 fL; WBC 9.02 10^3/uL (4.4-10.8)
[2024-06-08 16:12] LABS: Lipase 32 U/L (<78)
[2024-06-08 16:17] LABS: ALT 26 U/L (14-59); AST 21 U/L (15-37); Albumin 3.8 g/dL (3.4-5.0); Alkaline Phosphatase 76 U/L (46-116); Anion Gap 7.5 mmol/L (3-11); BUN 22 mg/dL (7-18); CO2 31.5 mmol/L (21.0-32.0); Calcium 9.4 mg/dL (8.5-10.1); Chloride 105 mmol/L (98-107); Estimated GFR 54.87 (mL/min/1.73m2); Glucose 67 mg/dL (74-106); Potassium 3.9 mmol/L (3.5-5.1); Sodium 144 mmol/L (136-145); Total Protein 7.5 g/dL (6.4-8.2)
== END 2024-06-08 16:27 | disposition home or self-care (01) ==
LOC: LBO 16:29
PROVIDERS: PCP Nurse Practitioner Adult Health; Visit Provider Family Medicine
DX: R10.31 Right lower quadrant pain (principal)
CPT/HCPCS: 36415; 80053; 83690; 85025

== ENCOUNTER 2024-06-12 19:18 | Outpatient (REF) | payer MEDICARE, SELFPAY ==
[2024-06-12 17:36] LABS: Bilirubin Negative (Negative); Blood Negative (Negative); Clarity Clear (Clear); Glucose Negative (Negative); Ketones Negative (Negative); Leukocyte Esterase Trace (Negative); Nitrite Negative (Negative); Specific Gravity >= 1.030 (1.005-1.025); Urobilinogen 0.2 mg/dL (Up to 0.2)
[2024-06-12 17:51] LABS: RBC Negative HPF (0-2); WBC 0-2 HPF (0-5)
[2024-06-12 17:52] LABS: Bacteria Negative HPF (Negative); C & S Indicated? No; Casts Negative LPF (Negative); Crystals Negative HPF (Negative); Epithelial Cells Negative HPF (Negative); Mucus Negative (Negative)
== END 2024-06-12 19:19 | disposition home or self-care (01) ==
LOC: LBN 19:18
PROVIDERS: PCP Nurse Practitioner Adult Health; Visit Provider Family Medicine
DX: R10.9 Unspecified abdominal pain (principal)
CPT/HCPCS: 81003; 81015

== ENCOUNTER 2024-06-16 01:08 | Outpatient (CLI) | payer MEDICARE, SELFPAY ==
[2024-06-16] MEDS: Breeza Beverage 473 ML BTL PO ×2 (13:17→13:19)
[2024-06-16] MEDS: Omnipaque 350 MG/ML 50 ML BTL PO (13:18)
[2024-06-16] MEDS: Normal Saline - Diluent 50 ML VIAL IJ (14:34)
[2024-06-16] MEDS: Omnipaque 350 MG/ML 100 ML BTL IJ (14:34)
--- NOTE | 2024-06-16 14:35 | DI.CT_ITS ---
Exam(s) CT CHEST/ABD/PEL W EXAM: CT CHEST/ABD/PEL W CLINICAL HISTORY: Rib pain vs liver vs appendicitis,RLQ ABD PAIN. TECHNIQUE: Imaging Protocol: Axial computed tomography images with coronal and sagittal reformatted images were created and reviewed CONTRAST MATERIAL: Intravenous: Omnipaque 350 Contrast volume:100 ml Oral: Yes. Oral contrast was also administered for bowel opacification. COMPARISON: CT CT BRAIN NECK CTA from 05/22/2023 FINDINGS: CHEST: LUNGS: There is platelike atelectasis in the inferior aspect of the right lower lobe. There are no c onfluent infiltrates nor pleural effusions and there are no ominous pulmonary nodules.. No significa nt findings in trachea and mainstem bronchi. There is no bronchiectasis. MEDIASTINUM: There is no hilar nor mediastinal adenopathy. Visualized thyroid unremarkable.There is a moderate size hiatal hernia noted CARDIAC: Heart size is upper normal. There is no pericardial effusion.Caliber of the thoracic aorta is within normal limits. No evidence of dissection. OSSEOUS: Bidirectional scoliosis but no compression fractures nor listhesis. Advanced disc space regulo rowing noted at L2-3 and L3-4 and L4-5 levels. No listhesis. ABDOMEN: The oral contrast has not yet reached the colon by the time of image acquisition but there does not a ppear to be evidence of small-bowel obstruction. There is moderate increased amount of fecal materia l seen throughout the colon. LIVER: There are no focal hepatic lesions nor dilatation of intrahepatic ducts. GALLBLADDER/BILIARY: Gallbladder surgically absent. CBD diameter is commensurate with post cholecyst ectomy status and patient's advanced age. PANCREAS: No evidence of pancreatic mass nor dilatation of the pancreatic duct. SPLEEN: Spleen is not enlarged. There are no intrasplenic lesions. Splenic and portal veins are hope nt. ADRENALS: There are no significant adrenal masses. KIDNEYS: No calculi nor hydronephrosis. No solid renal masses. There is a prominent 6.4 x 6.2 cm cyst at the upper-mid pole cortex of the left kidney. This cyst contains a peripheral small calcificatio n inferiorly. There are no solid renal masses nor calculi. No hydronephrosis. No hydroureter. ABDOMINAL AORTA: Calcified but not enlarged. The common iliac arteries are also calcified but not en larged. LYMPH NODES: There is no retroperitoneal nor paraaortic adenopathy. ABDOMINAL WALL: No evidence of significant anterior abdominal wall nor inguinal hernia. GI: The oral contrast has not yet reached the colon, however, there is no evidence of small-bowel obs truction. Maximum small bowel loop diameter is 2.4 cm. There is abundant fecal material noted throu ghout the colon consistent with constipation. There is interposition of colon between the right hepa tic lobe and the abdominal wall and the cecum is mobile, located above the right iliac fossa. PELVIS: LYMPH NODES: There is no intrapelvic nor inguinal adenopathy. GI: No evidence of appendicitis.No evidence of sigmoid diverticulitis. URINARY BLADDER: Slightly thickened bladder wall is probably related to under distension. REPRODUCTIVE: Uterus size is age-appropriate. There is slight thickening of the endometrium for this age group. No uterine fibroids evident. There are no abnormal adnexal masses. There is no free fl uid in the pelvis nor elsewhere in the abdomen. OSSEOUS: No fractures. There is rotoscoliosis convex right in the lumbar spine none advanced multile tobias disc space narrowing. No compression fractures evident. IMPRESSION: 1. There is abundant fecal material in the colon consistent with constipation and there is interposit ion of the hepatic flexure of the colon between the liver and the anterior right abdominal wall. Thi s may be contributory to right upper quadrant pain. In addition, the cecum is mobile. There is no evidence of diverticulitis nor appendicitis. 2. Gallbladder is surgically absent. No abnormal focal findings in the gallbladder fossa. There is mild dilatation of biliary tree consistent with patient's advanced age and post cholecystectomy statu s. There no radiopaque calculi seen within the lower CBD and no evidence of pancreatic head mass nor other abnormalities within the pancreas. 3. No rib fractures, as per request. Scoliosis/rotoscoliosis in the lumbar spine. However, there ar e no compression fractures. 4. Slight thickening of the endometrium for this age group. Recommend follow-up ultrasound for endom etrial measurement. There are no obvious uterine fibroids and there are no abnormal adnexal masses n or free fluid in the pelvis. RADIATION DOSE DELIVERED: 313.99mGy.cm Total DLP DATA REPOSITORY: All CT scans at this facility are submitted to the National Radiology Data Registry (NRDR) Dose Index Registry (DIR) with the [employer] (ACR). RADIATION OPTIMIZATION: All CT scans at this facility use at least one of these dose optimization te chniques: automated exposure control; mA and/or kV adjustment per patient size (includes targeted exa ms where dose is matched to clinical indication); or iterative reconstruction.
== END 2024-06-16 01:28 ==
LOC: DI 01:08
PROVIDERS: PCP Nurse Practitioner Adult Health; Visit Provider Family Medicine
DX: R10.31 Right lower quadrant pain (principal); K59.00 Constipation, unspecified; Z90.49 Acquired absence of other specified parts of digestive tract
CPT/HCPCS: 74177; 71260; J3490; Q9967

== ENCOUNTER 2024-07-02 01:40 | Outpatient (CLI) | payer MEDICARE, SELFPAY ==
--- NOTE | 2024-07-02 07:30 | DI.US_ITS ---
Exam(s) US PELVIS TRANSVAGINAL EXAM: US PELVIS TRANSVAGINAL CLINICAL HISTORY: CT showed thickened endometrium,r93.89 TECHNIQUE: Ultrasound of the pelvis was performed both transabdominal and transvaginal. COMPARISON: US ABDOMEN ULTRASOUND (P) from 06/12/[address] CHEST/ABD/PEL W from 06/16/2024 FINDINGS: UTERUS: Anteverted Measures 5.4 cm length x 0.7 cm AP x 3.7 cm wide. There are no uterine fibroids. However, the the endometrium is abnormal appearance, containing fluid and 2 solid endometrial based nodules-probable polyps at the level the fundus, these measuring 9 x 5 x 8 mm and 7 x 4 x 7 mm. CERVIX: There are no obvious nabothian cysts. RIGHT OVARY: Measures 1.9 x 1.0 x 1.4 cm No significant cysts nor masses evident in the right ovary. LEFT OVARY: Not visualized CUL-DE-SAC: No free fluid evident. IMPRESSION: 1. Abnormal endometrial cavity which contains 2 solid endometrial based lesions measuring 9 x 5 x 8 m m and 7 x 4 x 7 mm, these these the visualized because there is also an abnormal amount of fluid with in the endometrial cavity. Biopsy/sampling recommended to rule out malignancy. 2. No abnormal ovarian findings. Left ovary not visualized which is not an uncommon finding in this advanced age group. 3. No free fluid evident in the adnexal regions and cul-de-sac. DATA REPOSITORY:
== END 2024-07-02 02:00 ==
LOC: DI 01:40
PROVIDERS: PCP Nurse Practitioner Adult Health; Visit Provider Nurse Practitioner Adult Health
DX: R93.89 Abnormal findings on diagnostic imaging of other specified body structures (principal)
CPT/HCPCS: 76830; 76856

== ENCOUNTER 2024-08-11 12:19 | Outpatient (REF) | payer MEDICARE, SELFPAY ==
--- NOTE | 2024-08-11 11:50 | ENDOMET_PTH ---
PATIENT: Rosa Isela Lama LOC: [facility] U#:[id number] AGE/SX: 89/F ROOM: RE08/11/[address]: Audra Villegas MD : [id number] BED: DIS: 08/11/2024 SPEC #: [id number] RECD: 08/11/24 13:13 STATUS: NISHA REQ #: [id number] BERTHA: 08/11/24 11:[address]: Audra Villegas DEPT: Surgical Specimen RECD BY: Rosalind Isabel ENTERED: 08/11/24 13:13 SP TYPE: Endomet OT DR: Maria De Jesus Pritchard APRN Tissues: 1 - ENDOMETRIUM BX/CURRETTE Procedures: GROSS AND MICRO LEVEL 4 Comments: [id number]
== END 2024-08-11 12:20 | disposition home or self-care (01) ==
LOC: LBN 12:19
PROVIDERS: PCP Nurse Practitioner Adult Health; Visit Provider Obstetrics & Gynecology
DX: N85.01 Benign endometrial hyperplasia (principal)
CPT/HCPCS: 88305

== ENCOUNTER 2025-03-01 12:21 | Emergency (ER) | payer MEDICARE, SELFPAY ==
[2025-03-01 12:22] VITALS: BP 163/61; PULSE 72; RESP 18; TEMP 36.4; O2SAT 96
--- NOTE | 2025-03-01 14:53 | ED.GENADUL_ITS ---
Discharge Plan Disposition Patient Disposition: Home Condition: Stable Discharge Details Clinical Impression: Laceration of left index finger, Laceration of left leg, Bleeding from varicose vein Primary Care Provider: Maria De Jesus Pritchard ED Provider: Joseluis Goel Home Meds and New Rx's Prescriptions: Continued Pfbn-Jmkr-Ijlfq (rm-LJ-zxnuaa) 400-2,000 mcg tablet 1 tab PO .2 times weekly cetirizine [Zyrtec] 10 mg tablet 10 mg PO DAILY PRN (Reason: allergy symptoms) Qty: 30 0RF fluticasone propionate [Flonase Allergy Relief] 50 mcg/actuation spray,suspension 1 - 2 spray intranasal DAILY PRN (Reason: post-nasal drip) Qty: 16 2RF Rx Instructions: administer into each nostril Breztri Aerosphere 160-9-4.8 mcg/actuation HFA aerosol inhaler 2 inh inhalation BID Qty: 10.7 12RF ibuprofen 200 MG tablet 1 tab PO PRN aspirin [Aspirin Low-Strength] 81 MG tablet,chewable 1 tab PO DAILY albuterol sulfate 90 mcg/actuation HFA aerosol inhaler See Rx Instructions .ROUTE .COMPLEX Qty: 8.5 0RF Dose Instruction: INHALE TWO PUFFS BY MOUTH EVERY 6 HOURS NEEDED FOR SHORTNESS OF BREATH Rx Instructions: INHALE TWO PUFFS BY MOUTH EVERY 6 HOURS NEEDED FOR SHORTNESS OF BREATH (DME) BreatheRite MDI Spacer Spacer See Rx Instructions .Route Qty: 1 0RF Rx Instructions: As directed triamcinolone acetonide 0.1 % ointment 1 applic topical .3x/week PRN (Reason: lichen sclerosis) Qty: 30 0RF Rx Instructions: Use this instead of clobetasol (per [facility] 06/2022 note)--lower potency hydrochlorothiazide 12.5 mg tablet See Rx Instructions .ROUTE .COMPLEX Qty: 90 3RF Dose Instruction: TAKE ONE TABLET BY MOUTH EVERY DAY Rx Instructions: TAKE ONE TABLET BY MOUTH EVERY DAY lisinopril 5 mg tablet See Rx Instructions .ROUTE .COMPLEX Qty: 90 3RF Dose Instruction: TAKE ONE TABLET BY MOUTH EVERY DAY Rx Instructions: TAKE ONE TABLET BY MOUTH EVERY DAY famotidine 20 mg tablet See Rx Instructions .ROUTE .COMPLEX Qty: 180 3RF Dose Instruction: TAKE ONE TABLET BY MOUTH TWICE A DAY Rx Instructions: TAKE ONE TABLET BY MOUTH TWICE A DAY sertraline 50 mg tablet See Rx Instructions .ROUTE .COMPLEX Qty: 90 3RF Dose Instruction: TAKE ONE TABLET BY MOUTH EVERY DAY Rx Instructions: TAKE ONE TABLET BY MOUTH EVERY DAY Discharge Instructions Instructions: Laceration Repair With Stitches ED, Laceration Repair With Glue ED Additional Instructions: Please follow-up with [facility] or the emergency department for suture removal. Sutures should be removed in 12 to 14 days. Return to the emergency department immediately for any worsening or new concerning symptoms. Stand Alone Forms: Portal Information Referrals: Kalen Galindo [facility] [REPORT RECIPIENT, Unknown] [facility] General Mode of arrival: ambulatory . Date/Time Provider Initiated Documentation: 03/01/25 12:35 . Limitations to Documentation: no limitations . Information obtained by: patient . HPI Narrative: HISTORY OF PRESENT ILLNESS This is an 89-year-old female presenting with lacerations to her left lower leg and right second digit. The patient experienced a mechanical fall today, resulting in a laceration on her left lower leg and right second knuckle. The incident occurred when she tripped over a small threshold while en route to a hair appointment. Leg wound injured and underlying varicose vein and bleeding was initially significant. Pressure applied to the wound which seemed to slow the bleeding. She also mentions a previous rupture of a blood vessel in the same area. She is currently on a regimen of aspirin 81 mg. Tetanus is up-to-date. Related Data Home Medications ?Medication ?Instructions ?Recorded ?Confirmed aspirin 81 mg chewable tablet 1 tab PO DAILY 07/22/12 03/01/25 (Aspirin Low-Strength) ibuprofen 200 mg tablet 1 tab PO PRN 07/22/12 multivitamin-folic acid 400 1 tab PO .2 times weekly 0 12/07/22 03/01/25 mcg-biotin 2,000 mcg tablet (Hkzd-Mrpo-Pdaaa (pjpzokjx-qcosw-ahaqtd)) albuterol sulfate 90 mcg/actuation See Rx Instructions .Route 03/11/23 03/01/25 aerosol inhaler .COMPLEX #8.5 grams inhalational spacing device #1 ea 03/15/23 02/08/25 (BreatheRite MDI Spacer) triamcinolone acetonide 0.1 % 1 applic topical .3x/wee k PRN 02/10/24 03/01/25 topical ointment lichen sclerosis #30 grams budesonide 160 mcg-glycopyr 9 2 inh inhalation BID #10 .7 grams 08/03/24 03/01/25 mcg-formot 4.8 mcg/actuation HFA inhaler (Breztri Aerosphere) cetirizine 10 mg tablet (Zyrtec) 10 mg PO DAILY PRN al lergy 10/21/24 03/01/25 symptoms #30 tabs fluticasone propionate 50 1 - 2 spray intranasal DAILY PRN 10/21/24 03/01/25 mcg/actuation nasal post-nasal drip #16 grams spray,suspension (Flonase Allergy Relief) famotidine 20 mg tablet See Rx Instructions .Route 1 04/12/24 03/01/25 .COMPLEX #180 tabs hydrochlorothiazide 12.5 mg tablet See Rx Instructions .Route 02/10/25 03/01/25 .COMPLEX #90 tabs lisinopril 5 mg tablet See Rx Instructions .Route 1 04/12/24 03/01/25 .COMPLEX #90 tabs sertraline 50 mg tablet See Rx Instructions .Route 1 04/12/24 03/01/25 .COMPLEX #90 tabs Previous Rx's ?Medication ?Instructions ?Recorded albuterol sulfate 90 mcg/actuation See Rx Instructions .Route 03/11/23 aerosol inhaler .COMPLEX #8.5 grams inhalational spacing device #1 ea 03/15/23 (BreatheRite MDI Spacer) triamcinolone acetonide 0.1 % 1 applic topical .3x/wee k PRN 02/10/24 topical ointment lichen sclerosis #30 grams budesonide 160 mcg-glycopyr 9 2 inh inhalation BID #10 .7 grams 08/03/24 mcg-formot 4.8 mcg/actuation HFA inhaler (Breztri Aerosphere) cetirizine 10 mg tablet (Zyrtec) 10 mg PO DAILY PRN al lergy 10/21/24 symptoms #30 tabs fluticasone propionate 50 1 - 2 spray intranasal DAILY PRN 10/21/24 mcg/actuation nasal post-nasal drip #16 grams spray,suspension (Flonase Allergy Relief) famotidine 20 mg tablet See Rx Instructions .Route 1 04/12/24 .COMPLEX #180 tabs hydrochlorothiazide 12.5 mg tablet See Rx Instructions .Route 02/10/25 .COMPLEX #90 tabs lisinopril 5 mg tablet See Rx Instructions .Route 1 04/12/24 .COMPLEX #90 tabs sertraline 50 mg tablet See Rx Instructions .Route 1 04/12/24 .COMPLEX #90 tabs Allergies Allergy/AdvReac Type Severity Reaction Status Date / Time erythromycin base Allergy Pt states Verified 03/01/25 12:27 when she was a kid Macrolide Antibiotics Allergy unknown Verified 03/01/25 12:27 levofloxacin (From Levaquin) AdvReac Intermediate hallucinati Verified 03/01/25 12:27 ons General Stated Complaint: Laceration BHAVANI: 4 Review of Systems Integumentary/Breasts Skin/Breast: Reports as per HPI Exam Const General: cooperative and no acute distress HENMT Head: normocephalic and atraumatic Eyes Conjunctivae: normal conjunctivae Sclera: normal sclerae Resp Auscultation: clear to auscultation bilaterally, no rales, no rhonchi and no wheezes Cardio Rate: regular rate and not tachycardic Rhythm: regular rhythm GI Palpation: soft, not firm, no guarding, no masses, not rigid and nontender Skin General skin exam: no rashes or lesions noted Neuro General: patient alert, patient awake and tone normal Extrem General: no edema Left upper extremity: hand (2 cm laceration dorsal left second digit over mid phalanx) Details: neuromotor exam normal, neurosensory exam normal, tendon exam normal and normal ROM of fingers; no tenderness Left lower extremity: lower leg Details: laceration (Skin avulsion/tear into varicose vein, bleeding controlled) Course Vital Signs Vital signs: Vital Signs Temperature 36.4 C 03/01/25 12:22 Pulse 72 03/01/25 12:22 Respiratory Rate 18 03/01/25 12:22 Blood Pressure 163/61 H 03/01/25 12:22 Pulse Oximetry 96 03/01/25 12:22 Temperature 36.4 C 03/01/25 12:22 Pulse 72 03/01/25 12:22 Respiratory Rate 18 03/01/25 12:22 Blood Pressure 163/61 H 03/01/25 12:22 Pulse Oximetry 96 03/01/25 12:22 Oxygen Delivery Method Room Air 03/01/25 12:22 Oxygen Flow Rate 0 03/01/25 12:22 Pain Level 5 03/01/25 12:22 Procedure Laceration Laceration 1: Date of Procedure: 03/01/25 Time of procedure: 14:58 Provider that performed the procedure: Joseluis Goel Standard Time Out Performed: Yes Patient Consented: Verbally Site: lower extremity Side (If applicable): left Description: flap and irregular Depth: simple, single layer Pre-repair:: wound explored and deep structures intact Skin layer closed with: other (skin adhesive) Complications: None Laceration 2: Date of Procedure: 03/01/25 Time of procedure: 15:00 Provider that performed the procedure: Joseluis Goel Standard Time Out Performed: Yes Patient Consented: Verbally Site: hand (2nd digit dorsal) Side (If applicable): left Description: linear Depth: simple, single layer Pre-repair:: wound explored, irrigated extensively and deep structures intact Skin layer closed with: nylon Suture size: 4-0 Number of sutures:: 3 Technique: simple, interrupted Complications: None Nerve Block 1st Nerve Block: Date of Procedure: 03/01/25 Time of procedure: 14:50 Provider that performed the procedure: Joseluis Goel Indication: Local pain control and Procedural Standard Time Out Performed: Yes Patient Consented: Verbally Local Anesthetic: Lidocaine 1% Amount of anethetic used(mL): 6 Sterility: Sterile Laterality: Left Nerve Blocks: digital Ultrasound: Not used. Post Procedure Pain Score (0-10): 0 Procedure Tolerated: No Complications Procedure Outcome: Successful Procedure Description/Note: 3cc injected dorsally medial and lateral Medical Decision Making ASSESSMENT AND PLAN Initial Assessment: 89-year-old female with lacerations on the left lower leg into venous varicosity and right second digit dorsally due to a fall. Bleeding controlled. Hemodynamically stable. ED Course: - Skin adhesive applied to left lower leg laceration. - Digital block performed left second digit and primary closure performed. - Sterile nonadherent dressings applied to wounds by nursing. Clinical Impression: - Laceration on left lower leg - Laceration on right second knuckle Patient Education: Avoid excessive bending of the stitched finger to prevent disruption of stitches. Apply direct pressure with tissue or gauze in case of vein rupture. This document was written with the assistance of NEHAL Cutler. The patient consented to its use. PFSH All Active Problems Bleeding from varicose vein (Acute) Laceration of left leg (Acute) Laceration of left index finger (Acute) Impairment of speech discrimination (Acute) IFG (impaired fasting glucose) (Acute) Intermittent claudication (Acute) Peripheral vascular disease, unspecified (Chronic) Environmental allergies (Acute) Elevated TSH (Acute) Migraine aura without headache (Acute) COPD (chronic obstructive pulmonary disease) (Acute) quit smoking 2002 Depressive disorder (Chronic) Essential hypertension (Chronic 01/01/13) Low back pain (Chronic) chronic LBP and stiffness 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 Kennedy GERD (gastroesophageal reflux disease) (Chronic) Medical History Foot pain, left Foot pain, right RLQ abdominal pain Hyperglycemia Endometrial mass (~06/2024) biopsy 08/11/24: benign polyp - no further w/u unless bleeding. Lichen sclerosus of vulva [facility] dx'ed; RX Triamcinolone Actinic keratosis nose; Dr. 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) Surgical History S/P cholecystectomy S/P cataract extraction Family History Son Acromegaly Depression Bowel cancer Daughter Depression Skin cancer Self Adopted Social History Smoking/Tobacco Use Status: Former Tobacco Use Quit Date: 04/08/89 Tobacco: How many years used: 48 Second Hand Exposure: No Smoking risk assessment performed?: Yes Alcohol Intake: current Alcohol Intake frequency: holidays/special occasions only Alcohol type: wine Drug use: Never Substance use type: does not use Counseling given: No Counseling provided: none Adopted: Yes Caregiver/Support person: No Foster care: No Household members: spouse Housing: apartment Number of Children: 2 number of grandchildren: 6 Communication Needs: Hard of Hearing and Corrective Lenses Do you need help understanding health information?: Rarely current occupation: Retired Pets and animals: No Sexually active: No Do you think of yourself as: straight/heterosexual Current gender identity: female What is your relationship status?: How often do you talk on the phone with friends or family?: twice per week How often do you get together with friends or relatives?: twice per week How often do you attend baptism or jainism services?: 4 or more times per year Do you belong to any clubs or organized social groups?: yes Panel score (0-1 are the most socially isolated patients): 4 What type of physical activity do you participate in: walking and other Details: Excercise class Duration: 30-45 minutes/day Frequency: 1-2 times per week Michaela/Voodoo: Mormonism Special michaela needs: No Seatbelt use: always Helmet use: No Drive intox or ride w/intox solid waste truck driver: No Do you feel safe at home: Yes Do you feel safe in your relationship?: Yes Female Reproductive History Menstrual Age of Menarche: 15 control method: none History History 3 Para 2 Hx # Term Pregnancies Multiple births Hx # Pregnancies Ectopic pregnancies AB induced Hx Number of Living Children AB spontaneous 1 Past Pregnancies Del. Date GA/Weeks # Preg Succ Route Wgt Sex Labor Lgth Anesth esia Location Prov Complic 01/08/1960 Yes vaginal 3912.234 g Male [place], [place] 08/26/1962 Yes vaginal 3203.496 g Female [facility] Delivery Date: 01/08/1960 Last Updated by: Shirley Healy RN [place]- Born with broken leg and rolled over shoulder Delivery Date: 08/26/1962 Last Updated by: GUNNAR Dawson
== END 2025-03-01 15:12 | disposition home or self-care (01) ==
PROVIDERS: Emergency Provider Student in an Organized Health Care Education/Training Program; PCP Nurse Practitioner Adult Health
DX: S61.211A Laceration without foreign body of left index finger without damage to nail, initial encounter (principal); S81.812A Laceration without foreign body, left lower leg, initial encounter; W19.XXXA Unspecified fall, initial encounter; I83.892 Varicose veins of left lower extremity with other complications
CPT/HCPCS: 12001

== ENCOUNTER 2025-03-19 14:42 | Emergency (ER) | payer MEDICARE, SELFPAY ==
[2025-03-19 14:50] VITALS: BP 178/61; PULSE 70; RESP 20; TEMP 36.5; O2SAT 96
--- NOTE | 2025-03-19 15:02 | ED.GENADUL_ITS ---
Discharge Plan Disposition Patient Disposition: Home Condition: Stable Discharge Details Clinical Impression: Cellulitis of left anterior lower leg Primary Care Provider: Maria De Jesus Pritchard ED Provider: Jessica Ye Home Meds and New Rx's Prescriptions: New cephalexin 500 mg capsule 500 mg PO BID 7 Days Qty: 14 0RF Rx Instructions: Take one tablet by mouth twice daily x 7 days No Action Wzkw-Zwpk-Blfon (nq-WO-ecdljw) 400-2,000 mcg tablet 1 tab PO .2 times weekly cetirizine [Zyrtec] 10 mg tablet 10 mg PO DAILY PRN (Reason: allergy symptoms) Qty: 30 0RF fluticasone propionate [Flonase Allergy Relief] 50 mcg/actuation spray,suspension 1 - 2 spray intranasal DAILY PRN (Reason: post-nasal drip) Qty: 16 2RF Rx Instructions: administer into each nostril Breztri Aerosphere 160-9-4.8 mcg/actuation HFA aerosol inhaler 2 inh inhalation BID Qty: 10.7 12RF ibuprofen 200 MG tablet 1 tab PO PRN aspirin [Aspirin Low-Strength] 81 MG tablet,chewable 1 tab PO DAILY albuterol sulfate 90 mcg/actuation HFA aerosol inhaler See Rx Instructions .ROUTE .COMPLEX Qty: 8.5 0RF Dose Instruction: INHALE TWO PUFFS BY MOUTH EVERY 6 HOURS NEEDED FOR SHORTNESS OF BREATH Rx Instructions: INHALE TWO PUFFS BY MOUTH EVERY 6 HOURS NEEDED FOR SHORTNESS OF BREATH (DME) BreatheRite MDI Spacer Spacer See Rx Instructions .Route Qty: 1 0RF Rx Instructions: As directed triamcinolone acetonide 0.1 % ointment 1 applic topical .3x/week PRN (Reason: lichen sclerosis) Qty: 30 0RF Rx Instructions: Use this instead of clobetasol (per [facility] [place] [facility] [employer] 06/2022 note)--lower potency hydrochlorothiazide 12.5 mg tablet See Rx Instructions .ROUTE .COMPLEX Qty: 90 3RF Dose Instruction: TAKE ONE TABLET BY MOUTH EVERY DAY Rx Instructions: TAKE ONE TABLET BY MOUTH EVERY DAY lisinopril 5 mg tablet See Rx Instructions .ROUTE .COMPLEX Qty: 90 3RF Dose Instruction: TAKE ONE TABLET BY MOUTH EVERY DAY Rx Instructions: TAKE ONE TABLET BY MOUTH EVERY DAY famotidine 20 mg tablet See Rx Instructions .ROUTE .COMPLEX Qty: 180 3RF Dose Instruction: TAKE ONE TABLET BY MOUTH TWICE A DAY Rx Instructions: TAKE ONE TABLET BY MOUTH TWICE A DAY sertraline 50 mg tablet See Rx Instructions .ROUTE .COMPLEX Qty: 90 3RF Dose Instruction: TAKE ONE TABLET BY MOUTH EVERY DAY Rx Instructions: TAKE ONE TABLET BY MOUTH EVERY DAY Paxlovid 300 mg (150 mg x 2)-100 mg tablets,dose pack See Rx Instructions PO .COMPLEX Rx Instructions: take TWO 150 mg tablets of nirmatrelvir with ONE 100 mg tablet of ritonavir twice daily for 5 days PO Discharge Instructions Instructions: Cellulitis (Skin Infection), Adult ED Additional Instructions: It does appear the area is infected. Please take the antibiotic twice daily as prescribed with yogurt or probiotic as directed. Take the full course of medication. Keep the area clean and dry. Was daily with soap and water-allow to air dry at least 4 hours a day. The redness should get better after 3-5 days of the medication. Follow up with your PCP in 3-5 days for a wound recheck. Return to the ER for any spreading redness, swelling, fever, chills, or concerns. Stand Alone Forms: Portal Information Referrals: Maria De Jesus Pritchard NP [Primary Care Provider, Medicine] - 3 days Referral Note: ER follow up Wound re-check. Clinical Impression: Cellulitis of left anterior lower leg HPI General Mode of arrival: ambulatory . Date/Time Provider Initiated Documentation: 03/19/25 14:44 . Limitations to Documentation: no limitations . Information obtained by: patient, RN notes reviewed and old records reviewed . HPI Narrative: 89 year old female presents to the ER after being seen for a bleeding varicose vein and a fall 3 weeks ago. She noticed increased redness, swelling, and tenderness yesterday. The wound to her left lower leg was repaired with dermabond skin adhesive. There are 2 central areas of puncture with some distal semi-circumfrential erythema and swelling noted. Denies any fever or chills or any other associated symptoms. Related Data Home Medications ?Medication ?Instructions ?Recorded ?Confirmed aspirin 81 mg chewable tablet 1 tab PO DAILY 07/22/12 03/19/25 (Aspirin Low-Strength) ibuprofen 200 mg tablet 1 tab PO PRN 07/22/12 multivitamin-folic acid 400 1 tab PO .2 times weekly 0 12/07/22 03/19/25 mcg-biotin 2,000 mcg tablet (Rncn-Wgng-Xbfae (vutmynrh-zjbzd-lgsvbo)) albuterol sulfate 90 mcg/actuation See Rx Instructions .Route 03/11/23 03/19/25 aerosol inhaler .COMPLEX #8.5 grams inhalational spacing device #1 ea 03/15/23 03/19/25 (BreatheRite MDI Spacer) triamcinolone acetonide 0.1 % 1 applic topical .3x/wee k PRN 02/10/24 03/19/25 topical ointment lichen sclerosis #30 grams budesonide 160 mcg-glycopyr 9 2 inh inhalation BID #10 .7 grams 08/03/24 03/19/25 mcg-formot 4.8 mcg/actuation HFA inhaler (Breztri Aerosphere) cetirizine 10 mg tablet (Zyrtec) 10 mg PO DAILY PRN al lergy 10/21/24 03/19/25 symptoms #30 tabs fluticasone propionate 50 1 - 2 spray intranasal DAILY PRN 10/21/24 03/19/25 mcg/actuation nasal post-nasal drip #16 grams spray,suspension (Flonase Allergy Relief) famotidine 20 mg tablet See Rx Instructions .Route 1 04/12/24 03/19/25 .COMPLEX #180 tabs hydrochlorothiazide 12.5 mg tablet See Rx Instructions .Route 02/10/25 03/19/25 .COMPLEX #90 tabs lisinopril 5 mg tablet See Rx Instructions .Route 1 04/12/24 03/19/25 .COMPLEX #90 tabs sertraline 50 mg tablet See Rx Instructions .Route 1 04/12/24 03/19/25 .COMPLEX #90 tabs nirmatrelvir 300 mg (150 mg See Rx Instructions PO .CO MPLEX 03/08/25 03/19/25 x2)-ritonavir 100 mg tablet,dose pack (Paxlovid) cephalexin 500 mg capsule 500 mg PO BID Cellulitis 7 d ays 03/19/25 #14 caps Previous Rx's ?Medication ?Instructions ?Recorded albuterol sulfate 90 mcg/actuation See Rx Instructions .Route 03/11/23 aerosol inhaler .COMPLEX #8.5 grams inhalational spacing device #1 ea 03/15/23 (BreatheRite MDI Spacer) triamcinolone acetonide 0.1 % 1 applic topical .3x/wee k PRN 02/10/24 topical ointment lichen sclerosis #30 grams budesonide 160 mcg-glycopyr 9 2 inh inhalation BID #10 .7 grams 08/03/24 mcg-formot 4.8 mcg/actuation HFA inhaler (Breztri Aerosphere) cetirizine 10 mg tablet (Zyrtec) 10 mg PO DAILY PRN al lergy 10/21/24 symptoms #30 tabs fluticasone propionate 50 1 - 2 spray intranasal DAILY PRN 10/21/24 mcg/actuation nasal post-nasal drip #16 grams spray,suspension (Flonase Allergy Relief) famotidine 20 mg tablet See Rx Instructions .Route 1 04/12/24 .COMPLEX #180 tabs hydrochlorothiazide 12.5 mg tablet See Rx Instructions .Route 02/10/25 .COMPLEX #90 tabs lisinopril 5 mg tablet See Rx Instructions .Route 1 04/12/24 .COMPLEX #90 tabs sertraline 50 mg tablet See Rx Instructions .Route 1 04/12/24 .COMPLEX #90 tabs cephalexin 500 mg capsule 500 mg PO BID Cellulitis 7 d ays 03/19/25 #14 caps Allergies Allergy/AdvReac Type Severity Reaction Status Date / Time erythromycin base Allergy Pt states Verified 03/12/25 09:54 when she was a kid Macrolide Antibiotics Allergy unknown Verified 03/12/25 09:54 levofloxacin (From Levaquin) AdvReac Intermediate hallucinati Verified 03/12/25 09:54 ons General Stated Complaint: Recheck BHAVANI: 3 Review of Systems Integumentary/Breasts Skin/Breast: Reports as per HPI, Reports erythema, Reports skin pain and Reports skin swelling Exam Const General: cooperative, healthy appearing, well developed and well groomed Nutritional Appearance: average body habitus Orientation: alert, awake and oriented x3 Resp Effort & Inspection: normal respiratory effort and able to speak in complete sentences Extrem General: normal to inspection Right lower extremity: normal to inspection Left lower extremity: lower leg Details: tenderness Location: of the distal tibia, ecchymosis and warmth Location: of the mid lower leg Upper/lower leg/hip images: 2 1. Erythema, swelling and warmth 2. Circular puncture wound, healing 3. Circular puncture wound healing Course Vital Signs Vital signs: Vital Signs Temperature 36.5 C 03/19/25 14:50 Pulse 70 03/19/25 14:50 Respiratory Rate 20 03/19/25 14:50 Blood Pressure 178/61 H 03/19/25 14:50 Pulse Oximetry 96 03/19/25 14:50 Temperature 36.5 C 03/19/25 14:50 Pulse 70 03/19/25 14:50 Respiratory Rate 20 03/19/25 14:50 Blood Pressure 178/61 H 03/19/25 14:50 Blood Pressure Position Sitting 03/19/25 14:50 Pulse Oximetry 96 03/19/25 14:50 Oxygen Delivery Method Room Air 03/19/25 14:50 Oxygen Flow Rate 0 03/19/25 14:50 Medical Decision Making 89 year old female presents to the ER after being seen for a bleeding varicose vein and a fall 3 weeks ago. She noticed increased redness, swelling, and tenderness yesterday. The wound to her left lower leg was repaired with dermabond skin adhesive. There are 2 central areas of puncture with some distal semi-circumfrential erythema and swelling noted. Denies any fever or chills or any other associated symptoms. ED staff to delaney redness, clean and apply bacitracin. Will place patient on Cephalexin for a wound cellulitis. Will instruct patient to follow up for a recheck in 3-5 days or return here for any worsening. No currtent drainage or bleeding at this time. Discharged in hemodynamically stable alert and oriented condition. This text was generated using [employer] dictation system, please disregard any oddities of phrase or misspellings. PFSH All Active Problems (Updated 03/19/25 @ 15:10 by Jessica Ye NP) Cellulitis of left anterior lower leg (Acute) Bleeding from varicose vein (Acute) Laceration of left leg (Acute) Laceration of left index finger (Acute) Impairment of speech discrimination (Acute) IFG (impaired fasting glucose) (Acute) Intermittent claudication (Acute) Peripheral vascular disease, unspecified (Chronic) Environmental allergies (Acute) Elevated TSH (Acute) Migraine aura without headache (Acute) COPD (chronic obstructive pulmonary disease) (Acute) quit smoking 2002 Depressive disorder (Chronic) Essential hypertension (Chronic 01/01/13) Low back pain (Chronic) chronic LBP and stiffness 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 Kennedy GERD (gastroesophageal reflux disease) (Chronic) Medical History Foot pain, left Foot pain, right RLQ abdominal pain Hyperglycemia Endometrial mass (~06/2024) biopsy 08/11/24: benign polyp - no further w/u unless bleeding. Lichen sclerosus of vulva [facility] [place] [facility] [employer] [employer] dx'ed; RX Triamcinolone Actinic keratosis nose; Dr. 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) Surgical History S/P cholecystectomy S/P cataract extraction Family History Son Acromegaly Depression Bowel cancer Daughter Depression Skin cancer Self Adopted Social History Smoking/Tobacco Use Status: Former Tobacco Use Quit Date: 04/08/89 Tobacco: How many years used: 48 Second Hand Exposure: No Smoking risk assessment performed?: Yes Alcohol Intake: current Alcohol Intake frequency: holidays/special occasions only Alcohol type: wine Drug use: Never Substance use type: does not use Counseling given: No Counseling provided: none Adopted: Yes Caregiver/Support person: No Foster care: No Household members: spouse Housing: apartment Number of Children: 2 number of grandchildren: 6 Communication Needs: Hard of Hearing and Corrective Lenses Do you need help understanding health information?: Rarely current occupation: Retired Pets and animals: No Sexually active: No Do you think of yourself as: straight/heterosexual Current gender identity: female What is your relationship status?: How often do you talk on the phone with friends or family?: twice per week How often do you get together with friends or relatives?: twice per week How often do you attend denominational or scientology services?: 4 or more times per year Do you belong to any clubs or organized social groups?: yes Panel score (0-1 are the most socially isolated patients): 4 What type of physical activity do you participate in: walking and other Details: Excercise class Duration: 30-45 minutes/day Frequency: 1-2 times per week Michaela/Jewish: Uatsdin Special michaela needs: No Seatbelt use: always Helmet use: No Drive intox or ride w/intox cryogenic transport driver: No Do you feel safe at home: Yes Do you feel safe in your relationship?: Yes Female Reproductive History Menstrual Age of Menarche: 15 control method: none History History 2 3 Para 2 Hx # Term Pregnancies Multiple births Hx # Pregnancies Ectopic pregnancies AB induced Hx Number of Living Children AB spontaneous 1 Past Pregnancies Del. Date GA/Weeks # Preg Succ Route Wgt Sex Labor Lgth Anesth esia Location Prov Complic 01/08/1960 Yes vaginal 3912.234 g Male [place], [place] 08/26/1962 Yes vaginal 3203.496 g Female [facility] Delivery Date: 01/08/1960 Last Updated by: Shirley Healy RN [place]- Born with broken leg and rolled over shoulder Delivery Date: 08/26/1962 Last Updated by: GUNNAR Dawson
[2025-03-19] MEDS: Cephalexin 500 MG CAP PO (15:16)
[2025-03-19] MEDS: Bacitracin 1 PACKET TP (15:17)
[2025-03-19 15:24] VITALS: BP 119/55; PULSE 61; RESP 18; O2SAT 96
== END 2025-03-19 15:25 | disposition home or self-care (01) ==
PROVIDERS: Emergency Provider Registered Nurse Emergency; PCP Nurse Practitioner Adult Health
DX: L03.116 Cellulitis of left lower limb (principal); I10 Essential (primary) hypertension; J44.9 Chronic obstructive pulmonary disease, unspecified; Z79.82 Long term (current) use of aspirin; Z87.891 Personal history of nicotine dependence
CPT/HCPCS: 99283